=== PATIENT | male | born 1955 | race Caucasian/White ===

== ENCOUNTER 2016-06-27 20:45 | Observation (INO) | payer BC, OTHER, SELFPAY ==
[~2016-06-27] VITALS: Ht 182.9 cm; Wt 169.2 kg
[~2016-06-27 20:45] MED LIST: ALEV220C2 PO; IBUP800T23 PO; MIRA3350 PO; NICO21DI5 TD; PERC5TAB6 PO; SENO8.6T10 PO; ULTR50TA PO
[2016-06-27] MEDS ORDERED: MORPHINE 4 MG/ML 1ML SYRINGE As Ordered ONE ×2 (21:07→23:24)
[2016-06-27] MEDS ORDERED: ONDANSETRON 4MG/2ML VIAL (J2405) As Ordered ONE (21:07)
[2016-06-27 21:32] LABS: BASO % 0.4 % (0.0-1.0); EOS # 0.1 K/mm3 (0.0-0.50); EOS % 0.7 % (0.0-3.0); LARGE UNSTAINED CELL # 0.2 K/mm3 (0.0-0.4); LARGE UNSTAINED CELL % 1.4 % (0.0-4.0); LYMPH # 1.5 K/mm3 (1.5-4.5); LYMPH % 12.6 % (24.0-44.0); MEAN CORPUSCULAR HEMOGLOBIN 28.3 pg (27.0-33.0); MEAN CORPUSCULAR HGB CONC 33.2 g/dl (32.0-36.5); MEAN CORPUSCULAR VOLUME 85.4 fl (80.0-96.0); MONO # 0.6 K/mm3 (0.0-0.8); MONO % 5.1 % (0.0-5.0); NEUTROPHILS # 9.8 K/mm3 (1.8-7.7); NEUTROPHILS % 79.9 % (36.0-66.0); PLATELET COUNT, AUTOMATED 238 k/mm3 (150-450); RED CELL DISTRIBUTION WIDTH 12.8 % (11.5-14.5); WHITE BLOOD COUNT 12.2 K/mm3 (4.0-10.0)
[2016-06-27 21:41] LABS: ALBUMIN 3.6 GM/DL (3.2-5.2); ALBUMIN/GLOBULIN RATIO 1.38 (1.00-1.93); ALKALINE PHOSPHATASE 75 U/L (45-117); ALT/SGPT 22 U/L (12-78); ANION GAP 8 MEQ/L (8-16); AST/SGOT 11 U/L (15-37); BILIRUBIN,DIRECT 0.1 MG/DL (0.0-0.2); BILIRUBIN,TOTAL 0.4 MG/DL (0.2-1.0); BLOOD UREA NITROGEN 18 MG/DL (7-18); CALCIUM LEVEL 8.4 MG/DL (8.8-10.2); CARBON DIOXIDE LEVEL 29 MEQ/L (21-32); CHLORIDE LEVEL 105 MEQ/L (98-107); CREATININE FOR GFR 1.23 MG/DL (0.70-1.30); GLOMERULAR FILTRATION RATE > 60.0 (>49); GLUCOSE, FASTING 103 MG/DL (80-110); POTASSIUM SERUM 4.3 MEQ/L (3.5-5.1); SODIUM LEVEL 142 MEQ/L (136-145); TOTAL PROTEIN 6.2 GM/DL (6.4-8.2)
[2016-06-27] MEDS ORDERED: ISOVUE-370 76% 100ML VIAL (Q9967) As Ordered ONE (22:01)
--- NOTE | 2016-06-27 22:40 | REPUSA ---
CT of the right femur with contrast Clinical statement: Pain. Technique: Multiple axial CT images were obtained with 5 mm cuts through the right femur following ad ministration of nonionic intravenous contrast. Coronal and sagittal reconstructions were also obtaine d. No comparison is available. Findings: The osseous structures do not demonstrate any fractures or dislocations. There is a large m ix density loculated fluid collection in the anterior soft tissues in the distal upper leg and knee, measuring approximately 5.5 x 15.7 x 23 cm. Hyperdense material is seen within this lesion. Surroundi ng inflammatory stranding is seen in the anterior soft tissues. No discrete evidence of enhancement i s identified. The vascular structures demonstrate normal caliber and contour. There is a small joint effusion. Impression: 1. Large complex nonenhancing fluid collection in the anterior soft tissues just above the knee. This is most consistent with a large hematoma. Inflammatory stranding is noted surrounding this area, lik naif representing edema. 2. No abnormal enhancing mass lesions identified. 3. No acute fractures.
--- NOTE | 2016-06-28 01:57 | REP ---
Clinical: Trauma. Technique: AP and frog lateral views of the right femur. Findings: Degenerative changes at the hip and knee joint noted. No acute fracture or dislocation. Soft tissues grossly unremarkable. Surgical clips along the medial five likely related to prior vascular surgery. Impression: Degenerative changes. No acute fracture or dislocation. Signed by Perry Wallace MD 06/28/2016 01:48 A
--- NOTE | 2016-06-28 01:58 | REP ---
Clinical: Trauma. Technique: Single AP view of the pelvis. Findings: Age-related degenerative changes include enthesopathy along the iliac wings as well as increase sclerosis and joint space narrowing of the bilateral hips with subtle spurring. No acute fracture dislocation. Impression: Age-related degenerative changes. No acute fracture or dislocation. Signed by Perry Wallace MD 06/28/2016 01:49 A
--- NOTE | 2016-06-28 02:01 | REP ---
Clinical: Trauma . Comparison: 12/24/2015 . Findings: The mediastinum and cardiac silhouette are stable and within normal limits for portable technique; postsurgical changes appreciated. The lung alt[place]irano are clear without acute consolidation, effusion, or pneumothorax. Skeletal structures are intact. Impression: No acute cardiopulmonary process. No evidence for trauma. Signed by Perry Wallace MD 06/28/2016 01:52 A
--- NOTE | 2016-06-28 02:02 | REP ---
Clinical: Trauma. Technique: AP and lateral views of the right tibia / fibula. Findings: Tricompartmental degenerative changes at the knee include spurring/osteophytosis, cortical irregularity, increased sclerosis to the tibial surface and associated joint space narrowing. Clips along the medial calf consistent with vascular surgery. No acute fracture or dislocation. Impression: No fracture or dislocation Signed by Perry Wallace MD 06/28/2016 01:53 A
--- NOTE | 2016-06-28 02:03 | EDDOCDS ---
Physician Documentation [facility] Name: Marcello Chilel Age: 61 yrs Sex: Male : 1955 Arrival Date: 06/27/2016 Time: 20:45 Bed 3 Private MD: Kylah Klein Disposition: 06/28/16 01:04 Hospitalization ordered by Major Jama for Inpatient Admission. Preliminary diagnosis is Crushing injury of hip and thigh. - Bed requested for 4 Elizabeth. - Status is Inpatient Admission. tm5 - Condition is Stable. - Problem is an acute exacerbation. - Symptoms have improved. Historical: - Allergies: no known allergies; - Home Meds: 1. aspirin 81 mg Oral TbEC 1 tab once daily 2. atorvastatin 40 mg oral tab 1 tab once daily 3. ramipril 2.5 mg Oral cap 1 cap once daily 4. metoprolol succinate 25 mg Tb24 1 tab once daily - PMHx: High Cholesterol; Hypertension; CA; - PSHx: triple bypass; sternotomy wires removed; carotid artery surgery and replacement with bovine vein?; R CEA with bovine prostetic; - Immunization history: Last tetanus immunization: unknown. - Family history: Not pertinent. - Social history: Smoking status: Patient uses tobacco products, current every day smoker. No barriers to communication noted, The patient speaks fluent Upper Sor[place]. - Last oral intake was: 11.30 am. - : The pt / caregiver states he / she is not on anticoagulants. Home medication list is obtained from the patient. Vital Signs: 06/27 20:57 BP 120 / 67; Pulse 74; Resp 20; Temp 97.4(TE); Pulse Ox 96% ; Weight 169.2 kg / 373.02 rs3 lbs; Height 5 ft. 8 in. (172.72 cm); Pain 6/10; 20:58 BP 120 / 67 (auto/); rs3 21:00 BP 115 / 69 (auto/); rs3 21:02 Pulse Ox 96% ; rs3 21:15 BP 100 / 55 (auto/); rs3 21:17 Pulse 63 MON; Pulse Ox 94% ; rs3 21:41 BP 85 / 40 (auto/); rs3 21:44 BP 90 / 54 (auto/); rs3 21:53 Pulse 48 MON; Pulse Ox 93% ; rs3 21:56 BP 85 / 42 (auto/); rs3 22:00 Pulse 53 MON; Pulse Ox 96% ; rs3 22:11 BP 99 / 53 (auto/); rs3 22:24 Pulse 52 MON; Pulse Ox 96% ; rs3 22:24 BP 90 / 53; Pulse 48; Resp 18; Pulse Ox 99% on R/A; Pain 3/10; rs3 22:41 BP 91 / 52 (auto/); tm5 22:41 Pulse 52 MON; Pulse Ox 95% ; tm5 22:56 BP 100 / 58 (auto/); tm5 22:56 Pulse 51 MON; Pulse Ox 96% ; tm5 23:14 BP 117 / 76 (auto/); tm5 23:14 Pulse 50 MON; Pulse Ox 94% on R/A; tm5 23:56 BP 127 / 57 (auto/); tm5 23:56 Pulse 52 MON; Pulse Ox 96% ; tm5 06/28 00:11 BP 116 / 64 (auto/); tm5 00:11 Pulse 51 MON; Resp 18; Pulse Ox 96% on R/A; Pain 4/10; tm5 00:26 BP 109 / 59 (auto/); tm5 00:26 Pulse 51 MON; Resp 16; Pulse Ox 96% on R/A; Pain 2/10; tm5 00:41 BP 116 / 65 (auto/); tm5 00:41 Pulse 54 MON; tm5 00:56 BP 109 / 59 (auto/); tm5 00:56 Pulse 52 MON; tm5 01:11 BP 108 / 58 (auto/); tm5 01:11 Pulse 47 MON; tm5 01:26 BP 115 / 67 (auto/); tm5 01:26 Pulse 49 MON; Resp 16; Temp 98.2(O); Pulse Ox 96% on R/A; Pain 4/10; tm5 06/27 20:57 Body Mass Index 56.72 (169.20 kg, 172.72 cm) rs3 Trauma Score (Adult): 06/27 20:57 Eye Response: spontaneous(1); Verbal Response: oriented(1); Motor Response: obeys rs3 commands(2); Systolic BP: > 89 mm Hg(4); Respiratory Rate: 10 to 29 per min(4); Shahida Score: 15; Trauma Score: 12 MDM: 21:01 Stone Carriage Operator/Pulse Ox/q 15 min VS ordered. mm11 21:01 IV Saline Lock ordered. mm11 21:01 Rhythm Strip to chart ordered. mm11 21:01 Trauma Level 2 Designation ordered. mm11 21:01 Vascular checks q1h, notify provider if change in condition ordered. mm11 21:01 NS 0.9% 1000 ml IV at 150 mL/hr continuous ordered. mm11 21:02 Basic Metabolic Profile Ordered. EDMS 21:02 CBC with Diff Ordered. EDMS 21:02 Liver Profile Ordered. EDMS 21:02 Type and Cross, Packed Cells Ordered. EDMS 21:02 Chest, 1 View Ordered. EDMS 21:03 TYPE & SCREEN Ordered. EDMS 21:04 Pelvis Ordered. EDMS 21:04 Femur Ordered. EDMS 21:04 Tibia/Fibula Ordered. EDMS 21:04 ECG WITH READING ER PHYS+CARDIAG ordered. EDMS 21:04 morphine 4 mg IVP every 30 minutes; Document pain score/vitals after each dose (Hold if mm11 SBP < 90mmHg) x2 ordered. 21:06 Ondansetron 4 mg IVP once ordered. mm11 21:40 CBC with Diff Reviewed. mm11 21:40 TYPE & SCREEN Reviewed. mm11 21:44 NS 0.9% 1000 ml IV at bolus once ordered. mm11 21:47 Basic Metabolic Profile Reviewed. mm11 21:47 Liver Profile Reviewed. mm11 23:55 Admission Orders was scanned into [employer] and attached to record. [facility] 06/28 00:15 [facility] Payment Agreement was scanned into [employer] and attached to record. [facility] 00:15 Financial registration complete. [facility] 00:56 TYPE & SCREEN Reviewed. mm11 01:57 COMPLETE BLOOD COUNT Ordered. EDMS 01:57 BASIC METABOLIC PROFILE Ordered. EDMS 01:57 CREATINE PHOSPHOKINASE Ordered. EDMS 01:58 THYROID STIMULATING HORMONE Ordered. EDMS 01:58 MAGNESIUM LEVEL Ordered. EDMS 01:58 PT & APTT Ordered. EDMS Administered Medications: 06/27 21:18 Drug: NS 0.9% 1000 ml [sodium chloride 0.9 % intravenous solution] Route: IV; Rate: 150 rs3 mL/hr; Site: right antecubital; 21:18 Drug: morphine 4 mg [morphine 4 mg/mL intravenous cartridge (1 mL)] Route: IVP; Site: rs3 right antecubital; 22:24 Follow up: BP 90 / 53; Pulse 48 bpm; Resp 18 bpm; Pulse Ox 99% RA; Pain 3/10 Adult rs3 21:18 Drug: Ondansetron 4 mg [ondansetron HCl 2 mg/mL intravenous solution (2 mL)] Route: rs3 IVP; Site: right antecubital; 23:31 Follow up: Response: Nausea is resolved; No Adverse Reaction tm5 22:07 Drug: NS 0.9% 1000 ml [sodium chloride 0.9 % intravenous solution] Route: IV; Rate: sls1 bolus; Site: right antecubital; 23:23 Follow up: IV Status: Completed infusion; IV Intake: 1000ml tm5 23:31 Drug: morphine 4 mg [morphine 4 mg/mL intravenous cartridge (1 mL)] Route: IVP; Site: tm5 right antecubital; 06/28 00:00 Follow up: Response: No Adverse Reaction; Pain is decreased tm5 Signatures: Dispatcher [employer] EDMS Shin MONTES, Nadege, RN RN Carl Hannah DO DO mm11 Lani Gill RN RN rs3 McLear, Criss, ACTIVITIES COUNSELOR ACTIVITIES COUNSELOR tmm1 Janett Bowles Luz Valenzuela RN RN tm5 Abi Light RN sls1 The chart was reviewed and I authenticate all verbal orders and agree with the evaluation and treatment provided.Corrections: (The following items were deleted from the chart) 06/27 22:01 21:53 CT-Femur WITHOUT CONTRAST ordered. EDMS EDMS Attachments: 23:55 Admission Orders tmm1 06/28 00:15 [facility] [place] [facility] MTDD
--- NOTE | 2016-06-28 02:04 | EDDOCDS ---
Nurse's Notes [facility] Name: Marcello Chilel Age: 61 yrs Sex: Male : 1955 Arrival Date: 06/27/2016 Time: 20:45 Bed 3 Private MD: Kylah Klein Diagnosis: Crushing injury of hip and thigh Presentation: 06/27 20:47 Presenting complaint: EMS states: Had truck maribel \R\ 1000 ibs weight fell on his right rs3 thigh around 3.30 pm this evening. patient drove to [place] when he got out of the truck had syncopal episode an hour ago. he was conscious upon EMS arrival. BP 78/ 48. Method of arrival: Ambulance: direct to room. Care prior to arrival: Medications administered prior to arrival: Saline lock initiated. right leg Traction applied. Mechanism of Injury: Crush injury from TRuck maribel. Trauma event details: Loss of Consciousness: No. Injury occurred on a street or highway. Injury occurred June 27, 2016 Injury occurred at 20:00. 20:47 Acuity: FANI Level 2 rs3 06/28 01:31 Adult Sepsis Screening: The patient does not have new or worsening altered mentation. tm5 Patient's respiratory rate is less than 22. Systolic blood pressure is greater than 100. Patient has a qSOFA score of 0- Negative Sepsis Screen. Suicide/Homicide risk assessment- the patient denies having any suicidal and/or homicidal ideations and does not present with any other emotional, behavioral or mental health complaints. 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 Transition of care: patient was not received from another setting of care. Triage Assessment: 01:31 Pt Declines HIV testing. tm5 Historical: - Allergies: no known allergies; - Home Meds: 1. aspirin 81 mg Oral TbEC 1 tab once daily 2. atorvastatin 40 mg oral tab 1 tab once daily 3. ramipril 2.5 mg Oral cap 1 cap once daily 4. metoprolol succinate 25 mg Tb24 1 tab once daily - PMHx: High Cholesterol; Hypertension; LA; - PSHx: triple bypass; sternotomy wires removed; carotid artery surgery and replacement with bovine vein?; R CEA with bovine prostetic; - Immunization history: Last tetanus immunization: unknown. - Family history: Not pertinent. - Social history: Smoking status: Patient uses tobacco products, current every day smoker. No barriers to communication noted, The patient speaks fluent Hebrew. - Last oral intake was: 11.30 am. - : The pt / caregiver states he / she is not on anticoagulants. Home medication list is obtained from the patient. Screenin/19 21:01 Primary language is Hebrew. Fall risk: No risks identified. Assistance ADL's: requires rs3 no assistance with activities of daily living. Abuse/DV Screen: The patient / caregiver reports he/she is: not in a situation that causes fear, pain or injury. Nutritional screening: No deficits noted. Exposure Risk Screening: None identified. Advance Directives: Currently, there is no health care proxy. There is no active DNR order. home support is adequate. 06/28 01:26 Screening information is obtained from the patient. tm5 Assessment: 06/27 21:22 General: Appears uncomfortable, Behavior is appropriate for age, cooperative. Pain: rs3 Location: right quadriceps. Neurological: Level of Consciousness is awake, alert, Oriented to person, place, time. Cardiovascular: Capillary refill < 3 seconds Clubbing of nail beds is absent. Respiratory: Airway is patent Respiratory effort is even, unlabored. Derm: pedal pulses +2 Swollen area noted on right quadriceps. Musculoskeletal: Circulation, motion, and sensation intact Capillary refill < 3 seconds No deformity noted Swelling present in right quadriceps Signs and Symptoms of Compartment Syndrome: no signs of compartment syndrome. 22:26 General: Appears in no apparent distress, reports of pain level improved 5/10. returned rs3 from CT. tolerated procedure well. denies of chest pain/distress. . Derm: right pedal pulse non-palpable. absent Doppler. weak dorsalis pedis R foot. L foot strong pedal pulse +. Musculoskeletal: Circulation, motion, and sensation intact Capillary refill is > 3 seconds. 23:32 Reassessment: Patient appears in no apparent distress at this time. Patient states tm5 feeling better. Patient states symptoms have improved. Cardiovascular: right pedal pulse non-palpable, pt states that his right leg was used for vein removal for his by-pass surgery so he normally has weak pedal pulses in right foot any ways, was able to auscultate right pedal pulse with doppler, pulse weaker than left pedal pulse but is present Rhythm is sinus bradycardia No ectopy. 06/28 00:38 Reassessment: Patient appears in no apparent distress at this time. Patient states tm5 feeling better. Patient states symptoms have improved. Neurological: Level of Consciousness is awake, alert, Oriented to person, place, time. Cardiovascular: Rhythm is sinus bradycardia. Cardiovascular: auscultated right pedal pulse with doppler again, remains weak but present. Respiratory: Airway is patent Respiratory effort is even, unlabored. 01:32 EENT: No deficits noted. Cardiovascular: Rhythm is sinus bradycardia. GI: No deficits tm5 noted. : No deficits noted. Injury Description: Bruise sustained to right thigh. 01:34 Neurological: Pupils are PERRLA. tm5 01:43 General: SBAR was received by 4 PAV. tm5 01:51 General: 4 PAV ready for pt's admission to the floor, awaiting Hospitalist to complete tm5 pt's chart . 01:52 Reassessment: Critical care time stopped, patient has stabilized. Patient states tm5 feeling better. Patient states symptoms have improved. pt resting quietly on stretcher with eyes closed, resp easy, no s/s of any distress. Vital Signs: 06/27 20:57 BP 120 / 67; Pulse 74; Resp 20; Temp 97.4(TE); Pulse Ox 96% ; Weight 169.2 kg; Height 5 rs3 ft. 8 in. (172.72 cm); Pain 6/10; 20:58 BP 120 / 67 (auto/); rs3 21:00 BP 115 / 69 (auto/); rs3 21:02 Pulse Ox 96% ; rs3 21:15 BP 100 / 55 (auto/); rs3 21:17 Pulse 63 MON; Pulse Ox 94% ; rs3 21:41 BP 85 / 40 (auto/); rs3 21:44 BP 90 / 54 (auto/); rs3 21:53 Pulse 48 MON; Pulse Ox 93% ; rs3 21:56 BP 85 / 42 (auto/); rs3 22:00 Pulse 53 MON; Pulse Ox 96% ; rs3 22:11 BP 99 / 53 (auto/); rs3 22:24 Pulse 52 MON; Pulse Ox 96% ; rs3 22:24 BP 90 / 53; Pulse 48; Resp 18; Pulse Ox 99% on R/A; Pain 3/10; rs3 22:41 BP 91 / 52 (auto/); tm5 22:41 Pulse 52 MON; Pulse Ox 95% ; tm5 22:56 BP 100 / 58 (auto/); tm5 22:56 Pulse 51 MON; Pulse Ox 96% ; tm5 23:14 BP 117 / 76 (auto/); tm5 23:14 Pulse 50 MON; Pulse Ox 94% on R/A; tm5 23:56 BP 127 / 57 (auto/); tm5 23:56 Pulse 52 MON; Pulse Ox 96% ; tm5 06/28 00:11 BP 116 / 64 (auto/); tm5 00:11 Pulse 51 MON; Resp 18; Pulse Ox 96% on R/A; Pain 4/10; tm5 00:26 BP 109 / 59 (auto/); tm5 00:26 Pulse 51 MON; Resp 16; Pulse Ox 96% on R/A; Pain 2/10; tm5 00:41 BP 116 / 65 (auto/); tm5 00:41 Pulse 54 MON; tm5 00:56 BP 109 / 59 (auto/); tm5 00:56 Pulse 52 MON; tm5 01:11 BP 108 / 58 (auto/); tm5 01:11 Pulse 47 MON; tm5 01:26 BP 115 / 67 (auto/); tm5 01:26 Pulse 49 MON; Resp 16; Temp 98.2(O); Pulse Ox 96% on R/A; Pain 4/10; tm5 06/27 20:57 Body Mass Index 56.72 (169.20 kg, 172.72 cm) rs3 Vitals: 06/27 20:57 Trauma Level: One. rs3 06/28 01:31 Log In Time N/A - ambulance arrival. tm5 Trauma Score (Adult): 06/27 20:57 Eye Response: spontaneous(1); Verbal Response: oriented(1); Motor Response: obeys rs3 commands(2); Systolic BP: > 89 mm Hg(4); Respiratory Rate: 10 to 29 per min(4); [place] Score: 15; Trauma Score: 12 ED Course: 20:46 Patient visited by Criss Méndez PCA. tmm1 20:46 Patient moved to Waiting tmm1 20:47 Kylah Klein is Private Physician. tmm1 20:47 Soosairaj,Lani,RN is Primary Nurse. tmm1 20:47 Patient moved to 3 tmm1 20:52 Carl Snyder DO is Attending Physician. mm11 20:53 Patient visited by Carl Snyder DO. mm11 20:54 Triage Initiated rs3 20:59 Patient visited by Carl Snyder DO. mm11 21:05 TYPE & SCREEN Sent. sls1 21:05 Basic Metabolic Profile Sent. sls1 21:05 CBC with Diff Sent. sls1 21:05 Liver Profile Sent. sls1 21:05 Type and Cross, Packed Cells Sent. sls1 21:22 Patient visited by Braxton Sheppard PCA. jmv 21:22 EKG done. (by ED staff). Reviewed by Carl Snyder DO. jmv 22:23 Patient visited by Lani Gill RN. rs3 23:22 Patient visited by Luz Valenzuela,MAHNAZ. tm5 23:55 Admission Orders was scanned into [employer] and attached to record. tmm1 06/28 00:15 [facility] Payment Agreement was scanned into [employer] and attached to record. h 00:38 Patient visited by Luz Valenzuela RN. tm5 01:04 Major Jama is Hospitalizing Provider. mm11 01:26 Awaiting bed assignment. tm5 01:26 The patient / caregiver is instructed regarding the plan of care and ED course. Cardiac tm5 monitor on. Pulse ox on. NIBP on. 01:26 Inserted saline lock: 20 gauge in right antecubital area this RN is documenting noted tm5 IV saline lock to Right AC that off going RN did not document. No procedures done that require assistance. 01:28 Patient visited by Luz Valenzuela RN. tm5 01:43 Patient visited by Luz Valenzuela RN. tm5 01:57 Femur Returned. EDMS Administered Medications: 06/27 21:18 Drug: NS 0.9% 1000 ml [sodium chloride 0.9 % intravenous solution] Route: IV; Rate: 150 rs3 mL/hr; Site: right antecubital; 21:18 Drug: morphine 4 mg [morphine 4 mg/mL intravenous cartridge (1 mL)] Route: IVP; Site: rs3 right antecubital; 22:24 Follow up: BP 90 / 53; Pulse 48 bpm; Resp 18 bpm; Pulse Ox 99% RA; Pain 3/10 Adult rs3 21:18 Drug: Ondansetron 4 mg [ondansetron HCl 2 mg/mL intravenous solution (2 mL)] Route: rs3 IVP; Site: right antecubital; 23:31 Follow up: Response: Nausea is resolved; No Adverse Reaction tm5 22:07 Drug: NS 0.9% 1000 ml [sodium chloride 0.9 % intravenous solution] Route: IV; Rate: sls1 bolus; Site: right antecubital; 23:23 Follow up: IV Status: Completed infusion; IV Intake: 1000ml tm5 23:31 Drug: morphine 4 mg [morphine 4 mg/mL intravenous cartridge (1 mL)] Route: IVP; Site: tm5 right antecubital; 06/28 00:00 Follow up: Response: No Adverse Reaction; Pain is decreased tm5 Intake: 06/27 20:57 PO: 0.00ml; Total: 0.00ml. rs3 23:23 IV: 1000.00ml; Total: 1000.00ml. tm5 Output: 20:57 Urine: 0.00ml; Total: 0.00ml. rs3 Order Results: Lab Order: Basic Metabolic Profile; SPEC'M 06/27/16 21:04 Test: GLUCOSE, FASTING; Value: 103; Range: 80-110; Units: MG/DL; Status: F Test: BLOOD UREA NITROGEN; Value: 18; Range: 7-18; Units: MG/DL; Status: F Test: CREATININE FOR GFR; Value: 1.23; Range: 0.70-1.30; Units: MG/DL; Status: F Test: GLOMERULAR FILTRATION RATE; Value: > 60.0; Range: >49; Status: F Test: SODIUM LEVEL; Value: 142; Range: 136-145; Units: MEQ/L; Status: F Test: POTASSIUM SERUM; Value: 4.3; Range: 3.5-5.1; Units: MEQ/L; Status: F Test: CHLORIDE LEVEL; Value: 105; Range: 98-107; Units: MEQ/L; Status: F Test: CARBON DIOXIDE LEVEL; Value: 29; Range: 21-32; Units: MEQ/L; Status: F Test: ANION GAP; Value: 8; Range: 8-16; Units: MEQ/L; Status: F Test: CALCIUM LEVEL; Value: 8.4; Range: 8.8-10.2; Abnormal: Below low normal; Units: MG/DL; Status: F Test Note: ; Units are mL/min/1.73 m2 Chronic Kidney Disease Staging per NKF: Stage I & II GFR >=60 Normal to Mildly Decreased Stage III GFR 30-59 Moderately Decreased Stage IV GFR 15-29 Severely Decreased Stage V GFR <15 Very Little GFR Left ESRD GFR <15 on PORTFOLIO MGR Lab Order: CBC with Diff; SPEC'M 06/27/16 21:04 Test: WHITE BLOOD COUNT; Value: 12.2; Range: 4.0-10.0; Abnormal: Above high normal; Units: K/mm3; Status: F Test: RED BLOOD COUNT; Value: 5.16; Range: 4.30-6.10; Units: M/mm3; Status: F Test: HEMOGLOBIN; Value: 14.6; Range: 14.0-18.0; Units: g/dl; Status: F Test: HEMATOCRIT; Value: 44.1; Range: 42.0-52.0; Units: %; Status: F Test: MEAN CORPUSCULAR VOLUME; Value: 85.4; Range: 80.0-96.0; Units: fl; Status: F Test: MEAN CORPUSCULAR HEMOGLOBIN; Value: 28.3; Range: 27.0-33.0; Units: pg; Status: F Test: MEAN CORPUSCULAR HGB CONC; Value: 33.2; Range: 32.0-36.5; Units: g/dl; Status: F Test: RED CELL DISTRIBUTION WIDTH; Value: 12.8; Range: 11.5-14.5; Units: %; Status: F Test: PLATELET COUNT, AUTOMATED; Value: 238; Range: 150-450; Units: k/mm3; Status: F Test: NEUTROPHILS %; Value: 79.9; Range: 36.0-66.0; Abnormal: Above high normal; Units: %; Status: F Test: LYMPH %; Value: 12.6; Range: 24.0-44.0; Abnormal: Below low normal; Units: %; Status: F Test: MONO %; Value: 5.1; Range: 0.0-5.0; Abnormal: Above high normal; Units: %; Status: F Test: EOS %; Value: 0.7; Range: 0.0-3.0; Units: %; Status: F Test: BASO %; Value: 0.4; Range: 0.0-1.0; Units: %; Status: F Test: LARGE UNSTAINED CELL %; Value: 1.4; Range: 0.0-4.0; Units: %; Status: F Test: NEUTROPHILS #; Value: 9.8; Range: 1.8-7.7; Abnormal: Above high normal; Units: K/mm3; Status: F Test: LYMPH #; Value: 1.5; Range: 1.5-4.5; Units: K/mm3; Status: F Test: MONO #; Value: 0.6; Range: 0.0-0.8; Units: K/mm3; Status: F Test: EOS #; Value: 0.1; Range: 0.0-0.50; Units: K/mm3; Status: F Test: BASO #; Value: 0.0; Range: 0.0-0.2; Units: K/mm3; Status: F Test: LARGE UNSTAINED CELL #; Value: 0.2; Range: 0.0-0.4; Units: K/mm3; Status: F Lab Order: Liver Profile; SPEC'M 06/27/16 21:04 Test: AST/SGOT; Value: 11; Range: 15-37; Abnormal: Below low normal; Units: U/L; Status: F Test: ALT/SGPT; Value: 22; Range: 12-78; Units: U/L; Status: F Test: ALKALINE PHOSPHATASE; Value: 75; Range: 45-117; Units: U/L; Status: F Test: BILIRUBIN,TOTAL; Value: 0.4; Range: 0.2-1.0; Units: MG/DL; Status: F Test: BILIRUBIN,DIRECT; Value: 0.1; Range: 0.0-0.2; Units: MG/DL; Status: F Test: TOTAL PROTEIN; Value: 6.2; Range: 6.4-8.2; Abnormal: Below low normal; Units: GM/DL; Status: F Test: ALBUMIN; Value: 3.6; Range: 3.2-5.2; Units: GM/DL; Status: F Test: ALBUMIN/GLOBULIN RATIO; Value: 1.38; Range: 1.00-1.93; Status: F Lab Order: TYPE & SCREEN; SPEC'M 06/27/16 21:04 Test: BLOOD TYPE; Value: A POS; Status: F Test: AB SCREEN (INDIRECT DEMAR)GEL; Value: NEGATIVE; Status: F Test: IMMEDIATE SPIN CROSSMATCH; Value: [id number] A NEGATIVE Compatible? Y; Status: F Test: IMMEDIATE SPIN CROSSMATCH; Value: [id number] A POSITIVE Compatible? Y; Status: F Radiology Order: Femur Test: Femur REASON FOR EXAMINATION: Trauma; Clinical: Trauma.; ; Technique: AP and frog lateral views of the right femur.; ; Findings:; Degenerative changes at the hip and knee joint noted. No acute fracture or; dislocation. Soft tissues grossly unremarkable. Surgical clips along the medial; five likely related to prior vascular surgery.; ; Impression:; Degenerative changes. No acute fracture or dislocation.; ; ; Signed by; Perry Wallace MD 06/28/2016 01:48 A; Outcome: 06/28 01:04 Decision to Hospitalize by Provider. mm11 01:33 Discharge Assessment: Patient awake, alert and oriented x 3. No cognitive and/or tm5 functional deficits noted. Patient verbalized understanding of disposition instructions. patient administered narcotics - yes. Patient was admitted to the hospital or transferred to another facility. The following High Risk Discharge criteria are identified: None. Admitted to Med/Surg accompanied by tech, via stretcher, with chart. Condition: good Condition: stable Condition: improved. CT Study completed. Property :Personal belongings accompany Pt. 02:02 Patient left the ED. tm5 Signatures: Dispatcher [employer] EDCarl Raman DO DO mm11 Lani Gill RN RN rs3 Abi Light RN RN sls1 Criss Méndez, INTERVENTIONAL PHYSICIAN INTERVENTIONAL PHYSICIAN tmm1 Janett Bowles Jose, INTERVENTIONAL PHYSICIAN INTERVENTIONAL PHYSICIAN v Luz Valenzuela,MAHNAZ RN tm5 MTDD
[2016-06-28 02:05] VITALS: BP 140/76
[2016-06-28] MEDS ORDERED: METO25TA74 PO (02:16)
[2016-06-28] MEDS ORDERED: ATOR40TA PO (02:16)
[2016-06-28] MEDS ORDERED: ASPI325T PO (02:16)
--- NOTE | 2016-06-28 05:32 | CR ---
DATE OF CONSULTATION: 06/27/2016 This is a patient of [facility]. Corporate Paralegal: Dr. Farias Chief complaint is "I hurt my leg." SUMMARY OF PRESENTATION: This is a 61-year-old who was hooking up a tractor trailer tandem rig and the maribel that holds the trailing trailer fell upon his right leg. Estimated about 1000 pounds fell on his thigh at 3:30 p.m. this evening. He passed out. Apparently not long after, blood pressure was low. Emergency Medical Services (EMS) brought him to the hospital. He was seen by Dr. Jama, who has admitted him to the hospital and has asked for a medical consultation. Currently, the patient is feeling okay. His pain is controlled. He had no chest pain. No shortness of breath. He did have a coronary artery bypass and right-sided CEA done in December of 2014. Since that time, he has lost weight mainly by eating better, does not suffer from chest pain, has been trying to be more active. Mainly gets activity through work and caring for his two horses at home. Past medical history notable for hypercholesterolemia, hypertension, coronary artery disease. There is suggestion in the previous medical records that he has obstructive sleep apnea but the patient denies this. Past surgical history is notable for a triple bypass and later went on to have sternotomy wires removed as they were bothering him. He has a right-sided CEA done in December of 2014. Family history is noted for a mother who is 89, alive and well, dad who at age 42 with stomach cancer. Socially, he continues to smoke tobacco. 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 He lives in [place]. ALLERGIES: NO KNOWN DRUG ALLERGIES. He does have an allergy to BEE VENOM. Medications at home are listed as: - aspirin 81 mg daily - atorvastatin 40 mg daily - ramipril 2.5 mg daily - metoprolol succinate 25 mg by mouth daily Review of systems notable for no headache, no visual changes, no runny nose, no sore throat. No chest pain. No shortness of breath. No cough. No abdominal pain. No change in bowel or bladder habits. Otherwise, unremarkable. On physical exam, blood pressure is 117/76, pulse 50, respiratory rate 18, temperature 97.4, pulse oximetry 96% on room air. Weighs 169.2 kg with a body mass index of 56.72. My assessment is as follows: This is a 61-year-old who has suffered a traumatic crush injury to his right lower extremity and went on to have a syncopal event most likely related to the injury and perhaps blood loss into the hematoma on his thigh. Plan will be as follows: 1. Patient has a crush injury and is at risk for rhabdomyolysis. There is intravenous (IV) fluid ordered for a total of 3 liters, which is likely reasonable in the setting and possibility of need for transfusion is considered. Patient will be consented for transfusion as deemed necessary by the orthopedic surgeon. Patient is planned to go (dictation cut off) and so is currently nothing by mouth except for sips with medications. 2. Cardiovascular. Patient has coronary artery disease status post bypass. Optimized for surgery at this point. Surgery would be relatively urgent and he has adequate exercise tolerance with no angina or anginal equivalence. We will hold his angiotensin -converting enzyme (SAMRA) inhibitor at this time in the setting of developing in the setting of rhabdomyolysis and post injury and postoperative volume shifts. We will continue his beta blockade with hold parameters, at this point, he is relatively bradycardic but apparently his heart rate at baseline is low. We will withhold his aspirin in the setting as well. 3. Patient has hypercholesterolemia. Continue his statin drug. 4. Deep venous thrombosis (DVT) prophylaxis per the primary team.
[2016-06-28 05:48] LABS: MEAN CORPUSCULAR HEMOGLOBIN 29.1 pg (27.0-33.0); MEAN CORPUSCULAR HGB CONC 33.9 g/dl (32.0-36.5); RED CELL DISTRIBUTION WIDTH 13.1 % (11.5-14.5); WHITE BLOOD COUNT 9.3 K/mm3 (4.0-10.0)
[2016-06-28 05:54] LABS: INR 1.06
[2016-06-28 06:05] VITALS: BP 113/57
[2016-06-28 06:17] LABS: ANION GAP 7 MEQ/L (8-16); BLOOD UREA NITROGEN 16 MG/DL (7-18); CALCIUM LEVEL 7.9 MG/DL (8.8-10.2); CARBON DIOXIDE LEVEL 28 MEQ/L (21-32); CHLORIDE LEVEL 107 MEQ/L (98-107); CREATININE FOR GFR 0.97 MG/DL (0.70-1.30); GLOMERULAR FILTRATION RATE > 60.0 (>49); GLUCOSE, FASTING 99 MG/DL (80-110); POTASSIUM SERUM 4.4 MEQ/L (3.5-5.1); SODIUM LEVEL 142 MEQ/L (136-145)
[2016-06-28] MEDS: METOPROLOL SUCC *XL* 25MG TAB (TopROL *XL*) PO SCH (09:00)
--- NOTE | 2016-06-28 09:22 | CR ---
DATE OF CONSULTATION: 06/28/2016 This is a 61-year-old gentleman whose history is documented in the chart who was hit by a portion of a trailer I believe yesterday in his right thigh. The patient says that he continued to work after that. 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 He was admitted to the hospital. Dr. Jama saw him last night. He does have a history of a coronary artery bypass and a carotid endarterectomy done relatively recently. He is on aspirin as listed in the chart as a home medication in addition to atorvastatin, ramipril, and metoprolol succinate. There was some concern as to whether this needed to be evacuated on an urgent basis or decompressed. The CT scan had been obtained as well as femur x-rays. On exam, he was resting quite comfortably. He does have some discomfort if he tries to bend his knee more than about 70 or 80 degrees, but he has completely normal neurovascular function distally. He moves his foot and ankle normally. He can do a straight leg raise with no discomfort. He has mild tenderness over his anterior thigh where this hematoma and bruising is which extends from about the proximal 2/3 down to just above his knee. It actually feels to be fairly fluctuant and fluid-like at this point. There is absolutely no tenseness of the compartments at all. They are quite soft throughout his thigh in its complete circumference. There are no signs of compartment syndrome at this point in time. CT scan and x-rays are reviewed. There is no evidence of a fracture. The CT scan shows a very superficial hematoma just underneath the skin that involves his distal anterior thigh. At this point, I think we are dealing with a superficial hematoma in his thigh. I do not see any evidence of compartment syndrome and I do not see any evidence of urgent surgical involvement. I discussed this with the patient and he understands this. He understands that there is a risk of compartment syndrome and I described to him what that is all about and what the symptoms are and that he needs to let us know if he has developed any symptoms like that. Because there is some fluctuance to this fluid, I think it may be worth trying to just drain some of it out, which may reduce some of the risk of this becoming calcified down the road. So I think it is worth just doing an ultrasound guided aspiration and drain placement just to try to get some fluid out of this and maybe make him a little more comfortable, but again there is no tenseness to this anterior compartment or anywhere on his thigh and no signs of compartment syndrome. I do think the patient should have thromboembolic deterrent stockings (TEDS) and sequentials to prevent deep vein thrombosis (DVT). I assume the medical service is going to want to stay away from anticoagulation for right now and I would agree with that if possible from his cardiac and vascular standpoint. Will follow along for now. Thank you for the consult.
--- NOTE | 2016-06-28 11:18 | CR ---
DATE OF SERVICE: 06/28/2016 61-year-old male with past cardiac history and recent injury to his right thigh when he got pinned between a central joel and a trailer causing a large hematoma on his thigh. He was able to drive several hours after this incident until finally he had enough pain that he required calling 911. He was brought into the emergency department where he was diagnosed with a large right thigh hematoma on CT scan. On exam, he has swelling, tenderness to palpation. He is neurovascularly intact with regard to the L2-S1 nerve roots on the right side. His compartments are soft. His leg is well perfused and he has no other complaints. IMPRESSION: Large right anterior thigh hematoma. Recommendation from an orthopedic standpoint is irrigation and debridement as well as hospitalists medical management and OR clearance. We will make arrangements for that.
[2016-06-28] MEDS ORDERED: LIDOCAINE 1% MDV 20ML VIAL As Ordered ONE (13:31)
[2016-06-28 14:50] VITALS: BP 135/83
--- NOTE | 2016-06-28 17:27 | REP ---
ULTRASOUND GUIDED RIGHT THIGH HEMATOMA DRAINAGE: The procedure was performed under the direct supervision of Dr. Bacon. The patient has a history of a large complex nonenhancing fluid collection in the anterior soft-tissues just above the knee seen on a previous CAT scan dated 06/27/2016. The risks and benefits of the procedure were explained to the patient and informed consent was obtained. The right thigh hematoma was localized using ultrasound guidance. The skin was prepped and draped in a sterile fashion. 1% Xylocaine was used as a local anesthetic. Using ultrasound guidance an #8-Maori Skater APDL catheter was inserted using trocar technique. 10 mL of red fluid was withdrawn and sent to the lab. The catheter was affixed to the skin and a sterile dressing was applied. The catheter was connected to a gravity drainage bag. The patient tolerated the procedure well and there were no immediate complications. Reviewed by DENYS Almaraz 07/01/2016 05:06 PEdited and Signed by Mik Bacon MD 07/01/2016 05:12 P
[2016-06-28 19:55] VITALS: BP 129/59
[2016-06-28] MEDS: ATORVASTATIN 20 MG TAB PO SCH (19:57)
--- NOTE | 2016-06-28 21:33 | IPN ---
DATE: 06/28/2016 The patient was admitted overnight under orthopedic service. Status post trauma to the right thigh with hematoma. Denies any chest pain, pressure or discomfort. Denies any fevers or chills. Currently comfortable. VITAL SIGNS: Temperature 99.1, pulse 58, respirations 18, blood pressure 135/83, pulse oximetry 91% on room air. LABORATORY DATA: WBC 9.3, hemoglobin ad hematocrit 12.7/37.5, platelets 230. Chemistry: Sodium 142, potassium 4.4, chloride 107, bicarbonate 28, BUN 16, creatinine 0.97. Cardiac enzymes negative times one. TSH 1.7. PHYSICAL EXAMINATION: GENERAL: The patient is alert and oriented times three, in no acute distress. Obese. HEENT: Normocephalic, atraumatic. PULMONARY: Bilaterally clear to auscultation. CARDIAC: Regular rate and rhythm. Normal S1, S2. ABDOMEN: Soft, obese, nontender, nondistended. EXTREMITIES: Large right thigh, flexor surface, large hematoma with peripheral bruising, superficial, nontense, soft on the right thigh. Dorsalis pedis and posterior tibialis pulses bilaterally 2+. Able to move bilateral lower extremities. 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 Farias for cardiology, dyslipidemia, coronary arterial disease, obesity, patient was hooking up his tandem trailer when one of the maribel, that is estimated about 1000 pounds fell on his thigh around 3:30 p.m. yesterday. The patient developed a hematoma. Subsequently presented to the hospital. 1. Crushing injury on the patient's right thigh. The patient is admitted to orthopedic surgery service. Medicine was consulted for medical management. The patient with risk of adenolysis. IV fluids for hydration. Followup CK. Followup kidney function. Pain regimen as per orthopedic surgery. 2. Deep vein thrombosis (DVT) prophylaxis given the presence of hematoma, as per orthopedic surgery, put the patient on sequential compression device (SCD) for now. The patient, at baseline, able to ambulate with METs greater than 4. Coronary artery bypass graft (CABG) was one and a half years ago. Patient is intermediate risk for intermediate risk surgery, currently optimized. Continue beta blockers. As per orthopedic surgery, the patient does not need any surgery, going for interventional radiology guided aspiration of the hematoma. 2. Coronary arterial disease. Holding aspirin given hematoma for now. Resume after discussion with orthopedics. Continue statin and metoprolol. Dr. Farias has been informed. 3. Obesity complicating care. 4. Smoking. Counseling provided. Refused nicotine patch. 5. Dyslipidemia. Continue statin. 6. Deep vein thrombosis (DVT) prophylaxis. Discussed with orthopedics. Currently on sequential compression device (SCD). DISPOSITION: Pending primary team.
[2016-06-29 06:57] LABS: MEAN CORPUSCULAR HEMOGLOBIN 27.7 pg (27.0-33.0); MEAN CORPUSCULAR HGB CONC 31.8 g/dl (32.0-36.5); MEAN CORPUSCULAR VOLUME 87.2 fl (80.0-96.0); RED CELL DISTRIBUTION WIDTH 13.7 % (11.5-14.5); WHITE BLOOD COUNT 8.6 K/mm3 (4.0-10.0)
[2016-06-29 07:05] LABS: ANION GAP 5 MEQ/L (8-16); BLOOD UREA NITROGEN 17 MG/DL (7-18); CALCIUM LEVEL 7.9 MG/DL (8.8-10.2); CARBON DIOXIDE LEVEL 31 MEQ/L (21-32); CHLORIDE LEVEL 105 MEQ/L (98-107); CREATININE FOR GFR 1.03 MG/DL (0.70-1.30); GLOMERULAR FILTRATION RATE > 60.0 (>49); GLUCOSE, FASTING 93 MG/DL (80-110); POTASSIUM SERUM 4.6 MEQ/L (3.5-5.1); SODIUM LEVEL 141 MEQ/L (136-145)
--- NOTE | 2016-06-29 08:01 | ECGEPIP ---
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
[2016-06-29] MEDS: MOM 30ML SUSPENSION UDC PO SCH (10:09)
[2016-06-29] MEDS: MIRALAX *UNIT DOSE* 17GM PACKET PO SCH (10:09)
[2016-06-29] MEDS: METOPROLOL SUCC *XL* 25MG TAB (TopROL *XL*) PO SCH (10:09)
[2016-06-29 10:22] VITALS: BP 127/69
[2016-06-29 14:00] VITALS: BP 150/72
--- NOTE | 2016-06-29 14:37 | IPN ---
DATE OF SERVICE: 06/29/2016 The patient seen and examined. No acute events overnight. Denies any fevers, chills, chest pain, pressure, discomfort. Denies any shortness of breath. VITAL SIGNS: Temperature 98.3, pulse 53, respirations 18, blood pressure 127/69, pulse oximetry 90% on room air. LABORATORY: WBC 8.6, hemoglobin and hematocrit 12.2/38.3, platelets 214. Chemistry: Sodium 141, potassium 4.6, chloride 105, bicarbonate 31, BUN 17, creatinine 1.03. PHYSICAL EXAMINATION: GENERAL: The patient obese, alert and oriented times three, in no acute distress. HEENT: Normocephalic, atraumatic. PULMONARY: Bilaterally clear to auscultation. CARDIAC: Regular rate and rhythm. Normal S1, S2. ABDOMEN: Soft, obese, nontender, positive bowel sounds. EXTREMITIES: Large right thigh, flexor surface, large hematoma with peripheral bruising and superficial tissues, nontense, soft. Dorsalis pedis and posterior tibialis pulses 2+ bilaterally. Able to move bilateral lower extremities. Dressing clean, dry, and intact. Drain in place. Minimal output. 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 Farias for cardiology, dyslipidemia, coronary arterial disease, obesity. The patient was hooking up his tandem trailer when a maribel estimated about 1000 pounds fell on his thigh. The patient developed a hematoma. Subsequently, he presented to the hospital. Admitted under orthopedic service. PROBLEMS: 1. Crush injury of the patient's right thigh. The patient is admitted to orthopedic surgery. Medicine consulted for medical management. Images appreciated. Intravenous (IV) hydration was initially given for concerns of possible rhabdo. CK were negative. Kidney function negative. Pain regimen as per orthopedics. Status post drainage of hematoma with minimal output. Physical therapy. Withholding aspirin for now. Further management as per orthopedics. 2. Coronary arterial disease. Holding aspirin for now given hematoma. Will resume after discharge. Continue statin, metoprolol. Dr. Farias has been informed. 3. Obesity, complicating care. 4. Smoking. Counseling provided. Refused nicotine patch. 5. Dyslipidemia. Continue statin. 6. Deep vein thrombosis (DVT) prophylaxis. Sequential compression device, given the patient has a hematoma. DISPOSITION PLANNING: Pending primary team, physical therapy.
[2016-06-29] MEDS: ATORVASTATIN 20 MG TAB PO SCH (20:12)
[2016-06-29 20:15] VITALS: BP 143/70
--- NOTE | 2016-06-30 03:03 | EDDOCDS ---
Physician Documentation [facility] Name: Marcello Chilel Age: 61 yrs Sex: Male : 1955 Arrival Date: 06/27/2016 Time: 20:45 Bed 3 Private MD: Kylah Klein Disposition: 06/28/16 01:04 Hospitalization ordered by Major Jama for Inpatient Admission. Preliminary diagnosis is Crushing injury of hip and thigh. - Bed requested for 4 [place]. - Status is Inpatient Admission. tm5 - Condition is Stable. - Problem is an acute exacerbation. - Symptoms have improved. Historical: - Allergies: no known allergies; - Home Meds: 1. aspirin 81 mg Oral TbEC 1 tab once daily 2. atorvastatin 40 mg oral tab 1 tab once daily 3. ramipril 2.5 mg Oral cap 1 cap once daily 4. metoprolol succinate 25 mg Tb24 1 tab once daily - PMHx: High Cholesterol; Hypertension; [place]; - PSHx: triple bypass; sternotomy wires removed; carotid artery surgery and replacement with bovine vein?; R CEA with bovine prostetic; - Immunization history: Last tetanus immunization: unknown. - Family history: Not pertinent. - Social history: Smoking status: Patient uses tobacco products, current every day smoker. No barriers to communication noted, The patient speaks fluent Swedish. - Last oral intake was: 11.30 am. - : The pt / caregiver states he / she is not on anticoagulants. Home medication list is obtained from the patient. Vital Signs: 06/27 20:57 BP 120 / 67; Pulse 74; Resp 20; Temp 97.4(TE); Pulse Ox 96% ; Weight 169.2 kg / 373.02 rs3 lbs; Height 5 ft. 8 in. (172.72 cm); Pain 6/10; 20:58 BP 120 / 67 (auto/); rs3 21:00 BP 115 / 69 (auto/); rs3 21:02 Pulse Ox 96% ; rs3 21:15 BP 100 / 55 (auto/); rs3 21:17 Pulse 63 MON; Pulse Ox 94% ; rs3 21:41 BP 85 / 40 (auto/); rs3 21:44 BP 90 / 54 (auto/); rs3 21:53 Pulse 48 MON; Pulse Ox 93% ; rs3 21:56 BP 85 / 42 (auto/); rs3 22:00 Pulse 53 MON; Pulse Ox 96% ; rs3 22:11 BP 99 / 53 (auto/); rs3 22:24 Pulse 52 MON; Pulse Ox 96% ; rs3 22:24 BP 90 / 53; Pulse 48; Resp 18; Pulse Ox 99% on R/A; Pain 3/10; rs3 22:41 BP 91 / 52 (auto/); tm5 22:41 Pulse 52 MON; Pulse Ox 95% ; tm5 22:56 BP 100 / 58 (auto/); tm5 22:56 Pulse 51 MON; Pulse Ox 96% ; tm5 23:14 BP 117 / 76 (auto/); tm5 23:14 Pulse 50 MON; Pulse Ox 94% on R/A; tm5 23:56 BP 127 / 57 (auto/); tm5 23:56 Pulse 52 MON; Pulse Ox 96% ; tm5 06/28 00:11 BP 116 / 64 (auto/); tm5 00:11 Pulse 51 MON; Resp 18; Pulse Ox 96% on R/A; Pain 4/10; tm5 00:26 BP 109 / 59 (auto/); tm5 00:26 Pulse 51 MON; Resp 16; Pulse Ox 96% on R/A; Pain 2/10; tm5 00:41 BP 116 / 65 (auto/); tm5 00:41 Pulse 54 MON; tm5 00:56 BP 109 / 59 (auto/); tm5 00:56 Pulse 52 MON; tm5 01:11 BP 108 / 58 (auto/); tm5 01:11 Pulse 47 MON; tm5 01:26 BP 115 / 67 (auto/); tm5 01:26 Pulse 49 MON; Resp 16; Temp 98.2(O); Pulse Ox 96% on R/A; Pain 4/10; tm5 06/27 20:57 Body Mass Index 56.72 (169.20 kg, 172.72 cm) rs3 Trauma Score (Adult): 06/27 20:57 Eye Response: spontaneous(1); Verbal Response: oriented(1); Motor Response: obeys rs3 commands(2); Systolic BP: > 89 mm Hg(4); Respiratory Rate: 10 to 29 per min(4); Shahida Score: 15; Trauma Score: 12 MDM: 21:01 Mine Boss/Pulse Ox/q 15 min VS ordered. mm11 21:01 IV Saline Lock ordered. mm11 21:01 Rhythm Strip to chart ordered. mm11 21:01 Trauma Level 2 Designation ordered. mm11 21:01 Vascular checks q1h, notify provider if change in condition ordered. mm11 21:01 NS 0.9% 1000 ml IV at 150 mL/hr continuous ordered. mm11 21:02 Basic Metabolic Profile Ordered. EDMS 21:02 CBC with Diff Ordered. EDMS 21:02 Liver Profile Ordered. EDMS 21:02 Type and Cross, Packed Cells Ordered. EDMS 21:02 Chest, 1 View Ordered. EDMS 21:03 TYPE & SCREEN Ordered. EDMS 21:04 Pelvis Ordered. EDMS 21:04 Femur Ordered. EDMS 21:04 Tibia/Fibula Ordered. EDMS 21:04 ECG WITH READING ER PHYS+CARDIAG ordered. EDMS 21:04 morphine 4 mg IVP every 30 minutes; Document pain score/vitals after each dose (Hold if mm11 SBP < 90mmHg) x2 ordered. 21:06 Ondansetron 4 mg IVP once ordered. mm11 21:40 CBC with Diff Reviewed. mm11 21:40 TYPE & SCREEN Reviewed. mm11 21:44 NS 0.9% 1000 ml IV at bolus once ordered. mm11 21:47 Basic Metabolic Profile Reviewed. mm11 21:47 Liver Profile Reviewed. mm11 23:55 Admission Orders was scanned into [employer] and attached to record. tm 06/28 00:15 [facility] Payment Agreement was scanned into [employer] and attached to record. [facility] 00:15 Financial registration complete. [facility] 00:56 TYPE & SCREEN Reviewed. mm11 01:57 COMPLETE BLOOD COUNT Ordered. EDMS 01:57 BASIC METABOLIC PROFILE Ordered. EDMS 01:57 CREATINE PHOSPHOKINASE Ordered. EDMS 01:58 THYROID STIMULATING HORMONE Ordered. EDMS 01:58 MAGNESIUM LEVEL Ordered. EDMS 01:58 PT & APTT Ordered. EDMS 10:35 T-Sheet-- Draft Copy was scanned into [employer] and attached to record. gb 10:36 ECG/EKG was scanned into [employer] and attached to record. gb Administered Medications: 06/27 21:18 Drug: NS 0.9% 1000 ml [sodium chloride 0.9 % intravenous solution] Route: IV; Rate: 150 rs3 mL/hr; Site: right antecubital; 21:18 Drug: morphine 4 mg [morphine 4 mg/mL intravenous cartridge (1 mL)] Route: IVP; Site: rs3 right antecubital; 22:24 Follow up: BP 90 / 53; Pulse 48 bpm; Resp 18 bpm; Pulse Ox 99% RA; Pain 3/10 Adult rs3 21:18 Drug: Ondansetron 4 mg [ondansetron HCl 2 mg/mL intravenous solution (2 mL)] Route: rs3 IVP; Site: right antecubital; 23:31 Follow up: Response: Nausea is resolved; No Adverse Reaction tm5 22:07 Drug: NS 0.9% 1000 ml [sodium chloride 0.9 % intravenous solution] Route: IV; Rate: sls1 bolus; Site: right antecubital; 23:23 Follow up: IV Status: Completed infusion; IV Intake: 1000ml tm5 23:31 Drug: morphine 4 mg [morphine 4 mg/mL intravenous cartridge (1 mL)] Route: IVP; Site: tm5 right antecubital; 06/28 00:00 Follow up: Response: No Adverse Reaction; Pain is decreased tm5 Signatures: Dispatcher [employer] EDMS Nadege Landa RN RN daq Barnhardt, Gloria, Carl Culp DO DO mm11 Lani GillRN RN rs3 Criss Méndez, HOSE WRAPPER HOSE WRAPPER tmm1 Janett Bowles [facility] Luz Valenzuela RN RN tm5 Abi Light RN sls1 The chart was reviewed and I authenticate all verbal orders and agree with the evaluation and treatment provided.Corrections: (The following items were deleted from the chart) 06/27 22:01 21:53 CT-Femur WITHOUT CONTRAST ordered. EDMS EDMS Attachments: 23:55 Admission Orders tmm1 06/28 00:15 [facility] Payment Agreement [facility] 10:35 T-Sheet-- Draft Copy gb 10:36 ECG/EKG Chart Complete MTDD
--- NOTE | 2016-06-30 03:03 | EDDOCDS ---
Physician Documentation [facility] Name: Marcello Chilel Age: 61 yrs Sex: Male : 1955 Arrival Date: 06/27/2016 Time: 20:45 Bed 3 Private MD: Kylah Klein Disposition: 06/28/16 01:04 Hospitalization ordered by Major Jama for Inpatient Admission. Preliminary diagnosis is Crushing injury of hip and thigh. - Bed requested for 4 [facility]. - Status is Inpatient Admission. tm5 - Condition is Stable. - Problem is an acute exacerbation. - Symptoms have improved. Historical: - Allergies: no known allergies; - Home Meds: 1. aspirin 81 mg Oral TbEC 1 tab once daily 2. atorvastatin 40 mg oral tab 1 tab once daily 3. ramipril 2.5 mg Oral cap 1 cap once daily 4. metoprolol succinate 25 mg Tb24 1 tab once daily - PMHx: High Cholesterol; Hypertension; [place]; - PSHx: triple bypass; sternotomy wires removed; carotid artery surgery and replacement with bovine vein?; R CEA with bovine prostetic; - Immunization history: Last tetanus immunization: unknown. - Family history: Not pertinent. - Social history: Smoking status: Patient uses tobacco products, current every day smoker. No barriers to communication noted, The patient speaks fluent Yakut. - Last oral intake was: 11.30 am. - : The pt / caregiver states he / she is not on anticoagulants. Home medication list is obtained from the patient. Vital Signs: 06/27 20:57 BP 120 / 67; Pulse 74; Resp 20; Temp 97.4(TE); Pulse Ox 96% ; Weight 169.2 kg / 373.02 rs3 lbs; Height 5 ft. 8 in. (172.72 cm); Pain 6/10; 20:58 BP 120 / 67 (auto/); rs3 21:00 BP 115 / 69 (auto/); rs3 21:02 Pulse Ox 96% ; rs3 21:15 BP 100 / 55 (auto/); rs3 21:17 Pulse 63 MON; Pulse Ox 94% ; rs3 21:41 BP 85 / 40 (auto/); rs3 21:44 BP 90 / 54 (auto/); rs3 21:53 Pulse 48 MON; Pulse Ox 93% ; rs3 21:56 BP 85 / 42 (auto/); rs3 22:00 Pulse 53 MON; Pulse Ox 96% ; rs3 22:11 BP 99 / 53 (auto/); rs3 22:24 Pulse 52 MON; Pulse Ox 96% ; rs3 22:24 BP 90 / 53; Pulse 48; Resp 18; Pulse Ox 99% on R/A; Pain 3/10; rs3 22:41 BP 91 / 52 (auto/); tm5 22:41 Pulse 52 MON; Pulse Ox 95% ; tm5 22:56 BP 100 / 58 (auto/); tm5 22:56 Pulse 51 MON; Pulse Ox 96% ; tm5 23:14 BP 117 / 76 (auto/); tm5 23:14 Pulse 50 MON; Pulse Ox 94% on R/A; tm5 23:56 BP 127 / 57 (auto/); tm5 23:56 Pulse 52 MON; Pulse Ox 96% ; tm5 06/28 00:11 BP 116 / 64 (auto/); tm5 00:11 Pulse 51 MON; Resp 18; Pulse Ox 96% on R/A; Pain 4/10; tm5 00:26 BP 109 / 59 (auto/); tm5 00:26 Pulse 51 MON; Resp 16; Pulse Ox 96% on R/A; Pain 2/10; tm5 00:41 BP 116 / 65 (auto/); tm5 00:41 Pulse 54 MON; tm5 00:56 BP 109 / 59 (auto/); tm5 00:56 Pulse 52 MON; tm5 01:11 BP 108 / 58 (auto/); tm5 01:11 Pulse 47 MON; tm5 01:26 BP 115 / 67 (auto/); tm5 01:26 Pulse 49 MON; Resp 16; Temp 98.2(O); Pulse Ox 96% on R/A; Pain 4/10; tm5 06/27 20:57 Body Mass Index 56.72 (169.20 kg, 172.72 cm) rs3 Trauma Score (Adult): 06/27 20:57 Eye Response: spontaneous(1); Verbal Response: oriented(1); Motor Response: obeys rs3 commands(2); Systolic BP: > 89 mm Hg(4); Respiratory Rate: 10 to 29 per min(4); Shahida Score: 15; Trauma Score: 12 MDM: 21:01 Vat Skimmer/Pulse Ox/q 15 min VS ordered. mm11 21:01 IV Saline Lock ordered. mm11 21:01 Rhythm Strip to chart ordered. mm11 21:01 Trauma Level 2 Designation ordered. mm11 21:01 Vascular checks q1h, notify provider if change in condition ordered. mm11 21:01 NS 0.9% 1000 ml IV at 150 mL/hr continuous ordered. mm11 21:02 Basic Metabolic Profile Ordered. EDMS 21:02 CBC with Diff Ordered. EDMS 21:02 Liver Profile Ordered. EDMS 21:02 Type and Cross, Packed Cells Ordered. EDMS 21:02 Chest, 1 View Ordered. EDMS 21:03 TYPE & SCREEN Ordered. EDMS 21:04 Pelvis Ordered. EDMS 21:04 Femur Ordered. EDMS 21:04 Tibia/Fibula Ordered. EDMS 21:04 ECG WITH READING ER PHYS+CARDIAG ordered. EDMS 21:04 morphine 4 mg IVP every 30 minutes; Document pain score/vitals after each dose (Hold if mm11 SBP < 90mmHg) x2 ordered. 21:06 Ondansetron 4 mg IVP once ordered. mm11 21:40 CBC with Diff Reviewed. mm11 21:40 TYPE & SCREEN Reviewed. mm11 21:44 NS 0.9% 1000 ml IV at bolus once ordered. mm11 21:47 Basic Metabolic Profile Reviewed. mm11 21:47 Liver Profile Reviewed. mm11 23:55 Admission Orders was scanned into [employer] and attached to record. tm 06/28 00:15 [facility] Payment Agreement was scanned into [employer] and attached to record. [facility] 00:15 Financial registration complete. [facility] 00:56 TYPE & SCREEN Reviewed. mm11 01:57 COMPLETE BLOOD COUNT Ordered. EDMS 01:57 BASIC METABOLIC PROFILE Ordered. EDMS 01:57 CREATINE PHOSPHOKINASE Ordered. EDMS 01:58 THYROID STIMULATING HORMONE Ordered. EDMS 01:58 MAGNESIUM LEVEL Ordered. EDMS 01:58 PT & APTT Ordered. EDMS 10:35 T-Sheet-- Draft Copy was scanned into [employer] and attached to record. gb 10:36 ECG/EKG was scanned into [employer] and attached to record. gb Administered Medications: 06/27 21:18 Drug: NS 0.9% 1000 ml [sodium chloride 0.9 % intravenous solution] Route: IV; Rate: 150 rs3 mL/hr; Site: right antecubital; 21:18 Drug: morphine 4 mg [morphine 4 mg/mL intravenous cartridge (1 mL)] Route: IVP; Site: rs3 right antecubital; 22:24 Follow up: BP 90 / 53; Pulse 48 bpm; Resp 18 bpm; Pulse Ox 99% RA; Pain 3/10 Adult rs3 21:18 Drug: Ondansetron 4 mg [ondansetron HCl 2 mg/mL intravenous solution (2 mL)] Route: rs3 IVP; Site: right antecubital; 23:31 Follow up: Response: Nausea is resolved; No Adverse Reaction tm5 22:07 Drug: NS 0.9% 1000 ml [sodium chloride 0.9 % intravenous solution] Route: IV; Rate: sls1 bolus; Site: right antecubital; 23:23 Follow up: IV Status: Completed infusion; IV Intake: 1000ml tm5 23:31 Drug: morphine 4 mg [morphine 4 mg/mL intravenous cartridge (1 mL)] Route: IVP; Site: tm5 right antecubital; 06/28 00:00 Follow up: Response: No Adverse Reaction; Pain is decreased tm5 Signatures: Dispatcher [employer] EDMS Nadege Landa RN RN daq Barnhardt, Gloria, Carl Culp DO DO mm11 Lani GillRN RN rs3 Criss Méndez, MARBLE SUPERVISOR MARBLE SUPERVISOR tmm1 Janett Bowles [facility] Luz Valenzuela RN RN tm5 Abi Light RN sls1 The chart was reviewed and I authenticate all verbal orders and agree with the evaluation and treatment provided.Corrections: (The following items were deleted from the chart) 06/27 22:01 21:53 CT-Femur WITHOUT CONTRAST ordered. EDMS EDMS Attachments: 23:55 Admission Orders tmm1 06/28 00:15 [facility] Payment Agreement [facility] 10:35 T-Sheet-- Draft Copy gb 10:36 ECG/EKG Chart Complete MTDD
--- NOTE | 2016-06-30 03:05 | EDDOCDS ---
Nurse's Notes [facility] Name: Marcello Chilel Age: 61 yrs Sex: Male : 1955 Arrival Date: 06/27/2016 Time: 20:45 Bed 3 Private MD: Kylah Klein Diagnosis: Crushing injury of hip and thigh Presentation: 06/27 20:47 Presenting complaint: EMS states: Had truck maribel \R\ 1000 ibs weight fell on his right rs3 thigh around 3.30 pm this evening. patient drove to [place] when he got out of the truck had syncopal episode an hour ago. he was conscious upon EMS arrival. BP 78/ 48. Method of arrival: Ambulance: direct to room. Care prior to arrival: Medications administered prior to arrival: Saline lock initiated. right leg Traction applied. Mechanism of Injury: Crush injury from TRuck maribel. Trauma event details: Loss of Consciousness: No. Injury occurred on a street or highway. Injury occurred June 27, 2016 Injury occurred at 20:00. 20:47 Acuity: FANI Level 2 rs3 06/28 01:31 Adult Sepsis Screening: The patient does not have new or worsening altered mentation. tm5 Patient's respiratory rate is less than 22. Systolic blood pressure is greater than 100. Patient has a qSOFA score of 0- Negative Sepsis Screen. Suicide/Homicide risk assessment- the patient denies having any suicidal and/or homicidal ideations and does not present with any other emotional, behavioral or mental health complaints. Status: Patient is not a retail customer service representative or dependent. Transition of care: patient was not received from another setting of care. Triage Assessment: 01:31 Pt Declines HIV testing. tm5 Historical: - Allergies: no known allergies; - Home Meds: 1. aspirin 81 mg Oral TbEC 1 tab once daily 2. atorvastatin 40 mg oral tab 1 tab once daily 3. ramipril 2.5 mg Oral cap 1 cap once daily 4. metoprolol succinate 25 mg Tb24 1 tab once daily - PMHx: High Cholesterol; Hypertension; MO; - PSHx: triple bypass; sternotomy wires removed; carotid artery surgery and replacement with bovine vein?; R CEA with bovine prostetic; - Immunization history: Last tetanus immunization: unknown. - Family history: Not pertinent. - Social history: Smoking status: Patient uses tobacco products, current every day smoker. No barriers to communication noted, The patient speaks fluent Telugu. - Last oral intake was: 11.30 am. - : The pt / caregiver states he / she is not on anticoagulants. Home medication list is obtained from the patient. Screenin/19 21:01 Primary language is Telugu. Fall risk: No risks identified. Assistance ADL's: requires rs3 no assistance with activities of daily living. Abuse/DV Screen: The patient / caregiver reports he/she is: not in a situation that causes fear, pain or injury. Nutritional screening: No deficits noted. Exposure Risk Screening: None identified. Advance Directives: Currently, there is no health care proxy. There is no active DNR order. home support is adequate. 06/28 01:26 Screening information is obtained from the patient. tm5 Assessment: 06/27 21:22 General: Appears uncomfortable, Behavior is appropriate for age, cooperative. Pain: rs3 Location: right quadriceps. Neurological: Level of Consciousness is awake, alert, Oriented to person, place, time. Cardiovascular: Capillary refill < 3 seconds Clubbing of nail beds is absent. Respiratory: Airway is patent Respiratory effort is even, unlabored. Derm: pedal pulses +2 Swollen area noted on right quadriceps. Musculoskeletal: Circulation, motion, and sensation intact Capillary refill < 3 seconds No deformity noted Swelling present in right quadriceps Signs and Symptoms of Compartment Syndrome: no signs of compartment syndrome. 22:26 General: Appears in no apparent distress, reports of pain level improved 5/10. returned rs3 from CT. tolerated procedure well. denies of chest pain/distress. . Derm: right pedal pulse non-palpable. absent Doppler. weak dorsalis pedis R foot. L foot strong pedal pulse +. Musculoskeletal: Circulation, motion, and sensation intact Capillary refill is > 3 seconds. 23:32 Reassessment: Patient appears in no apparent distress at this time. Patient states tm5 feeling better. Patient states symptoms have improved. Cardiovascular: right pedal pulse non-palpable, pt states that his right leg was used for vein removal for his by-pass surgery so he normally has weak pedal pulses in right foot any ways, was able to auscultate right pedal pulse with doppler, pulse weaker than left pedal pulse but is present Rhythm is sinus bradycardia No ectopy. 06/28 00:38 Reassessment: Patient appears in no apparent distress at this time. Patient states tm5 feeling better. Patient states symptoms have improved. Neurological: Level of Consciousness is awake, alert, Oriented to person, place, time. Cardiovascular: Rhythm is sinus bradycardia. Cardiovascular: auscultated right pedal pulse with doppler again, remains weak but present. Respiratory: Airway is patent Respiratory effort is even, unlabored. 01:32 EENT: No deficits noted. Cardiovascular: Rhythm is sinus bradycardia. GI: No deficits tm5 noted. : No deficits noted. Injury Description: Bruise sustained to right thigh. 01:34 Neurological: Pupils are PERRLA. tm5 01:43 General: SBAR was received by 4 PAV. tm5 01:51 General: 4 PAV ready for pt's admission to the floor, awaiting Hospitalist to complete tm5 pt's chart . 01:52 Reassessment: Critical care time stopped, patient has stabilized. Patient states tm5 feeling better. Patient states symptoms have improved. pt resting quietly on stretcher with eyes closed, resp easy, no s/s of any distress. Vital Signs: 06/27 20:57 BP 120 / 67; Pulse 74; Resp 20; Temp 97.4(TE); Pulse Ox 96% ; Weight 169.2 kg; Height 5 rs3 ft. 8 in. (172.72 cm); Pain 6/10; 20:58 BP 120 / 67 (auto/); rs3 21:00 BP 115 / 69 (auto/); rs3 21:02 Pulse Ox 96% ; rs3 21:15 BP 100 / 55 (auto/); rs3 21:17 Pulse 63 MON; Pulse Ox 94% ; rs3 21:41 BP 85 / 40 (auto/); rs3 21:44 BP 90 / 54 (auto/); rs3 21:53 Pulse 48 MON; Pulse Ox 93% ; rs3 21:56 BP 85 / 42 (auto/); rs3 22:00 Pulse 53 MON; Pulse Ox 96% ; rs3 22:11 BP 99 / 53 (auto/); rs3 22:24 Pulse 52 MON; Pulse Ox 96% ; rs3 22:24 BP 90 / 53; Pulse 48; Resp 18; Pulse Ox 99% on R/A; Pain 3/10; rs3 22:41 BP 91 / 52 (auto/); tm5 22:41 Pulse 52 MON; Pulse Ox 95% ; tm5 22:56 BP 100 / 58 (auto/); tm5 22:56 Pulse 51 MON; Pulse Ox 96% ; tm5 23:14 BP 117 / 76 (auto/); tm5 23:14 Pulse 50 MON; Pulse Ox 94% on R/A; tm5 23:56 BP 127 / 57 (auto/); tm5 23:56 Pulse 52 MON; Pulse Ox 96% ; tm5 06/28 00:11 BP 116 / 64 (auto/); tm5 00:11 Pulse 51 MON; Resp 18; Pulse Ox 96% on R/A; Pain 4/10; tm5 00:26 BP 109 / 59 (auto/); tm5 00:26 Pulse 51 MON; Resp 16; Pulse Ox 96% on R/A; Pain 2/10; tm5 00:41 BP 116 / 65 (auto/); tm5 00:41 Pulse 54 MON; tm5 00:56 BP 109 / 59 (auto/); tm5 00:56 Pulse 52 MON; tm5 01:11 BP 108 / 58 (auto/); tm5 01:11 Pulse 47 MON; tm5 01:26 BP 115 / 67 (auto/); tm5 01:26 Pulse 49 MON; Resp 16; Temp 98.2(O); Pulse Ox 96% on R/A; Pain 4/10; tm5 06/27 20:57 Body Mass Index 56.72 (169.20 kg, 172.72 cm) rs3 Vitals: 06/27 20:57 Trauma Level: One. rs3 06/28 01:31 Log In Time N/A - ambulance arrival. tm5 Trauma Score (Adult): 06/27 20:57 Eye Response: spontaneous(1); Verbal Response: oriented(1); Motor Response: obeys rs3 commands(2); Systolic BP: > 89 mm Hg(4); Respiratory Rate: 10 to 29 per min(4); [place] Score: 15; Trauma Score: 12 ED Course: 20:46 Patient visited by Criss Méndez PCA. tmm1 20:46 Patient moved to Waiting tmm1 20:47 Kylah Klein is Private Physician. tmm1 20:47 Soosairaj,Lani,RN is Primary Nurse. tmm1 20:47 Patient moved to 3 tmm1 20:52 Carl Snyder DO is Attending Physician. mm11 20:53 Patient visited by Carl Snyder DO. mm11 20:54 Triage Initiated rs3 20:59 Patient visited by Carl Snyder DO. mm11 21:05 TYPE & SCREEN Sent. sls1 21:05 Basic Metabolic Profile Sent. sls1 21:05 CBC with Diff Sent. sls1 21:05 Liver Profile Sent. sls1 21:05 Type and Cross, Packed Cells Sent. sls1 21:22 Patient visited by Braxton Sheppard PCA. jmv 21:22 EKG done. (by ED staff). Reviewed by Carl Snyder DO. jmv 22:23 Patient visited by Lani Gill RN. rs3 23:22 Patient visited by Luz Valenzuela,MAHNAZ. tm5 23:55 Admission Orders was scanned into xAd and attached to record. tmm1 06/28 00:15 [facility] Payment Agreement was scanned into xAd and attached to record. slh 00:38 Patient visited by Luz Valenzuela,MAHNAZ. tm5 01:04 Major Jama is Hospitalizing Provider. mm11 01:26 Awaiting bed assignment. tm5 01:26 The patient / caregiver is instructed regarding the plan of care and ED course. Cardiac tm5 monitor on. Pulse ox on. NIBP on. 01:26 Inserted saline lock: 20 gauge in right antecubital area this RN is documenting noted tm5 IV saline lock to Right AC that off going RN did not document. No procedures done that require assistance. 01:28 Patient visited by Luz Valenzuela RN. tm5 01:43 Patient visited by Luz Valenzuela,MAHNAZ. tm5 01:57 Femur Returned. EDMS 10:35 T-Sheet-- Draft Copy was scanned into xAd and attached to record. gb 10:36 ECG/EKG was scanned into xAd and attached to record. gb Administered Medications: 06/27 21:18 Drug: NS 0.9% 1000 ml [sodium chloride 0.9 % intravenous solution] Route: IV; Rate: 150 rs3 mL/hr; Site: right antecubital; 21:18 Drug: morphine 4 mg [morphine 4 mg/mL intravenous cartridge (1 mL)] Route: IVP; Site: rs3 right antecubital; 22:24 Follow up: BP 90 / 53; Pulse 48 bpm; Resp 18 bpm; Pulse Ox 99% RA; Pain 08/16 Adult rs3 21:18 Drug: Ondansetron 4 mg [ondansetron HCl 2 mg/mL intravenous solution (2 mL)] Route: rs3 IVP; Site: right antecubital; 23:31 Follow up: Response: Nausea is resolved; No Adverse Reaction tm5 22:07 Drug: NS 0.9% 1000 ml [sodium chloride 0.9 % intravenous solution] Route: IV; Rate: sls1 bolus; Site: right antecubital; 23:23 Follow up: IV Status: Completed infusion; IV Intake: 1000ml tm5 23:31 Drug: morphine 4 mg [morphine 4 mg/mL intravenous cartridge (1 mL)] Route: IVP; Site: tm5 right antecubital; 06/28 00:00 Follow up: Response: No Adverse Reaction; Pain is decreased tm5 Intake: 06/27 20:57 PO: 0.00ml; Total: 0.00ml. rs3 23:23 IV: 1000.00ml; Total: 1000.00ml. tm5 Output: 20:57 Urine: 0.00ml; Total: 0.00ml. rs3 Order Results: Lab Order: Basic Metabolic Profile; SPEC'M 06/27/16 21:04 Test: GLUCOSE, FASTING; Value: 103; Range: 80-110; Units: MG/DL; Status: F Test: BLOOD UREA NITROGEN; Value: 18; Range: 7-18; Units: MG/DL; Status: F Test: CREATININE FOR GFR; Value: 1.23; Range: 0.70-1.30; Units: MG/DL; Status: F Test: GLOMERULAR FILTRATION RATE; Value: > 60.0; Range: >49; Status: F Test: SODIUM LEVEL; Value: 142; Range: 136-145; Units: MEQ/L; Status: F Test: POTASSIUM SERUM; Value: 4.3; Range: 3.5-5.1; Units: MEQ/L; Status: F Test: CHLORIDE LEVEL; Value: 105; Range: 98-107; Units: MEQ/L; Status: F Test: CARBON DIOXIDE LEVEL; Value: 29; Range: 21-32; Units: MEQ/L; Status: F Test: ANION GAP; Value: 8; Range: 8-16; Units: MEQ/L; Status: F Test: CALCIUM LEVEL; Value: 8.4; Range: 8.8-10.2; Abnormal: Below low normal; Units: MG/DL; Status: F Test Note: ; Units are mL/min/1.73 m2 Chronic Kidney Disease Staging per NKF: Stage I & II GFR >=60 Normal to Mildly Decreased Stage III GFR 30-59 Moderately Decreased Stage IV GFR 15-29 Severely Decreased Stage V GFR <15 Very Little GFR Left ESRD GFR <15 on ROLL FORM OPERATOR Lab Order: CBC with Diff; SPEC'M 06/27/16 21:04 Test: WHITE BLOOD COUNT; Value: 12.2; Range: 4.0-10.0; Abnormal: Above high normal; Units: K/mm3; Status: F Test: RED BLOOD COUNT; Value: 5.16; Range: 4.30-6.10; Units: M/mm3; Status: F Test: HEMOGLOBIN; Value: 14.6; Range: 14.0-18.0; Units: g/dl; Status: F Test: HEMATOCRIT; Value: 44.1; Range: 42.0-52.0; Units: %; Status: F Test: MEAN CORPUSCULAR VOLUME; Value: 85.4; Range: 80.0-96.0; Units: fl; Status: F Test: MEAN CORPUSCULAR HEMOGLOBIN; Value: 28.3; Range: 27.0-33.0; Units: pg; Status: F Test: MEAN CORPUSCULAR HGB CONC; Value: 33.2; Range: 32.0-36.5; Units: g/dl; Status: F Test: RED CELL DISTRIBUTION WIDTH; Value: 12.8; Range: 11.5-14.5; Units: %; Status: F Test: PLATELET COUNT, AUTOMATED; Value: 238; Range: 150-450; Units: k/mm3; Status: F Test: NEUTROPHILS %; Value: 79.9; Range: 36.0-66.0; Abnormal: Above high normal; Units: %; Status: F Test: LYMPH %; Value: 12.6; Range: 24.0-44.0; Abnormal: Below low normal; Units: %; Status: F Test: MONO %; Value: 5.1; Range: 0.0-5.0; Abnormal: Above high normal; Units: %; Status: F Test: EOS %; Value: 0.7; Range: 0.0-3.0; Units: %; Status: F Test: BASO %; Value: 0.4; Range: 0.0-1.0; Units: %; Status: F Test: LARGE UNSTAINED CELL %; Value: 1.4; Range: 0.0-4.0; Units: %; Status: F Test: NEUTROPHILS #; Value: 9.8; Range: 1.8-7.7; Abnormal: Above high normal; Units: K/mm3; Status: F Test: LYMPH #; Value: 1.5; Range: 1.5-4.5; Units: K/mm3; Status: F Test: MONO #; Value: 0.6; Range: 0.0-0.8; Units: K/mm3; Status: F Test: EOS #; Value: 0.1; Range: 0.0-0.50; Units: K/mm3; Status: F Test: BASO #; Value: 0.0; Range: 0.0-0.2; Units: K/mm3; Status: F Test: LARGE UNSTAINED CELL #; Value: 0.2; Range: 0.0-0.4; Units: K/mm3; Status: F Lab Order: Liver Profile; SPEC'M 06/27/16 21:04 Test: AST/SGOT; Value: 11; Range: 15-37; Abnormal: Below low normal; Units: U/L; Status: F Test: ALT/SGPT; Value: 22; Range: 12-78; Units: U/L; Status: F Test: ALKALINE PHOSPHATASE; Value: 75; Range: 45-117; Units: U/L; Status: F Test: BILIRUBIN,TOTAL; Value: 0.4; Range: 0.2-1.0; Units: MG/DL; Status: F Test: BILIRUBIN,DIRECT; Value: 0.1; Range: 0.0-0.2; Units: MG/DL; Status: F Test: TOTAL PROTEIN; Value: 6.2; Range: 6.4-8.2; Abnormal: Below low normal; Units: GM/DL; Status: F Test: ALBUMIN; Value: 3.6; Range: 3.2-5.2; Units: GM/DL; Status: F Test: ALBUMIN/GLOBULIN RATIO; Value: 1.38; Range: 1.00-1.93; Status: F Lab Order: TYPE & SCREEN; SPEC'M 06/27/16 21:04 Test: BLOOD TYPE; Value: A POS; Status: F Test: AB SCREEN (INDIRECT DEMAR)GEL; Value: NEGATIVE; Status: F Test: IMMEDIATE SPIN CROSSMATCH; Value: [id number] A NEGATIVE Compatible? Y; Status: F Test: IMMEDIATE SPIN CROSSMATCH; Value: [id number] A POSITIVE Compatible? Y; Status: F Radiology Order: Femur Test: Femur REASON FOR EXAMINATION: Trauma; Clinical: Trauma.; ; Technique: AP and frog lateral views of the right femur.; ; Findings:; Degenerative changes at the hip and knee joint noted. No acute fracture or; dislocation. Soft tissues grossly unremarkable. Surgical clips along the medial; five likely related to prior vascular surgery.; ; Impression:; Degenerative changes. No acute fracture or dislocation.; ; ; Signed by; Perry Wallace MD 06/28/2016 01:48 A; Outcome: 06/28 01:04 Decision to Hospitalize by Provider. mm11 01:33 Discharge Assessment: Patient awake, alert and oriented x 3. No cognitive and/or tm5 functional deficits noted. Patient verbalized understanding of disposition instructions. patient administered narcotics - yes. Patient was admitted to the hospital or transferred to another facility. The following High Risk Discharge criteria are identified: None. Admitted to Med/Surg accompanied by tech, via stretcher, with chart. Condition: good Condition: stable Condition: improved. CT Study completed. Property :Personal belongings accompany Pt. 02:02 Patient left the ED. tm5 Signatures: Dispatcher [employer] EDMS Nory Barber, Britton Reg Carl Winkler, DO mm11 Lani Gill,RN RN rs3 Abi Light RN RN sls1 Criss Méndez, MANUAL CONTROL AUGER PRESS OPERATOR MANUAL CONTROL AUGER PRESS OPERATOR tmm1 Janett Bowles Braxton Marquez, MANUAL CONTROL AUGER PRESS OPERATOR MANUAL CONTROL AUGER PRESS OPERATOR Luz Riggins RN RN tm5 Chart Complete MTDD
[2016-06-30 06:00] VITALS: BP 133/74
[2016-06-30 06:54] LABS: MEAN CORPUSCULAR HGB CONC 33.5 g/dl (32.0-36.5); MEAN CORPUSCULAR VOLUME 86.5 fl (80.0-96.0); RED CELL DISTRIBUTION WIDTH 12.9 % (11.5-14.5)
[2016-06-30 06:59] LABS: ANION GAP 4 MEQ/L (8-16); BLOOD UREA NITROGEN 13 MG/DL (7-18); CALCIUM LEVEL 8.1 MG/DL (8.8-10.2); CARBON DIOXIDE LEVEL 32 MEQ/L (21-32); CHLORIDE LEVEL 106 MEQ/L (98-107); CREATININE FOR GFR 0.98 MG/DL (0.70-1.30); GLOMERULAR FILTRATION RATE > 60.0 (>49); GLUCOSE, FASTING 89 MG/DL (80-110); MAGNESIUM LEVEL 2.2 MG/DL (1.8-2.4); POTASSIUM SERUM 4.4 MEQ/L (3.5-5.1); SODIUM LEVEL 142 MEQ/L (136-145)
[2016-06-30] MEDS: MOM 30ML SUSPENSION UDC PO SCH (08:28)
[2016-06-30] MEDS: MIRALAX *UNIT DOSE* 17GM PACKET PO SCH (08:29)
[2016-06-30] MEDS: METOPROLOL SUCC *XL* 25MG TAB (TopROL *XL*) PO SCH (08:30)
[2016-06-30 14:00] VITALS: BP 148/78
[2016-06-30] MEDS: ATORVASTATIN 20 MG TAB PO SCH (19:37)
[2016-06-30 22:00] VITALS: BP 133/60
[2016-07-01 06:00] VITALS: BP 164/72
[2016-07-01 06:44] LABS: MEAN CORPUSCULAR HEMOGLOBIN 29.1 pg (27.0-33.0); MEAN CORPUSCULAR HGB CONC 33.8 g/dl (32.0-36.5); MEAN CORPUSCULAR VOLUME 86.2 fl (80.0-96.0); RED CELL DISTRIBUTION WIDTH 12.8 % (11.5-14.5); WHITE BLOOD COUNT 6.8 K/mm3 (4.0-10.0)
[2016-07-01 07:19] LABS: ANION GAP 7 MEQ/L (8-16); BLOOD UREA NITROGEN 12 MG/DL (7-18); CALCIUM LEVEL 8.2 MG/DL (8.8-10.2); CARBON DIOXIDE LEVEL 30 MEQ/L (21-32); CHLORIDE LEVEL 105 MEQ/L (98-107); CREATININE FOR GFR 0.95 MG/DL (0.70-1.30); GLOMERULAR FILTRATION RATE > 60.0 (>49); GLUCOSE, FASTING 86 MG/DL (80-110); MAGNESIUM LEVEL 2.3 MG/DL (1.8-2.4); POTASSIUM SERUM 4.3 MEQ/L (3.5-5.1); SODIUM LEVEL 142 MEQ/L (136-145)
[2016-07-01] MEDS ORDERED: ASPI81TA13 PO (07:34)
[2016-07-01] MEDS ORDERED: CEFD1CAP8 PO (07:34)
--- NOTE | 2016-07-01 08:07 | IPN ---
DATE OF VISIT: 06/30/2016 The patient was seen and examined. No acute events overnight. Denies any fever or chills. Continues to report right lower extremity pain with mild blister formation. Denies any shortness of breath, chest pain, pressure discomfort. VITAL SIGNS: Temperature 97.7, pulse 45, respirations 16, blood pressure 148/78, pulse oximetry 97% on room air. LABORATORY DATA: WBC 8.0, hemoglobin 12.2, hematocrit 36.3, platelets 214. Chemistries: Sodium 142, potassium 4.4, chloride 106, bicarbonate 32, BUN 13, creatinine 0.98. PHYSICAL EXAMINATION: GENERAL: The patient obese, alert and oriented times three. No acute distress. HEENT: Normocephalic atraumatic. PULMONARY: Bilateral clear to auscultation. CARDIAC: Regular rate and rhythm, normal S1, S2. ABDOMEN: Obese, soft, nontender. Positive bowel sounds. EXTREMITIES: Right thigh,, flexor surface, large hematoma improving, soft with peripheral bruising of superficial tissue. Drain is in place putting out serosanguineous fluid. Dorsalis pedis (DP) posterior tibialis pulses (PT) pulses bilaterally 2+. 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 Farias for cardiology, dyslipidemia, coronary arterial disease, obesity. The patient was hooking up his tandem trailer when the maribel, estimated about 1000 pounds, fell on his thigh. The patient developed a hematoma. Subsequently, he presented to the hospital and was admitted under orthopedic service. PROBLEMS: 1. Crush injury of the patient's right thigh. The patient is admitted to orthopedic surgery. Medicine consulted for medical management. Images appreciated. Intravenous (IV) fluid was initially given, currently off intravenous (IV) fluids. CPK negative. Kidney function stable. Pain regimen per orthopedics. Drain is in place for hematoma by radiology. 2. Physical therapy. Withholding aspirin for now. Further management as per orthopedics. 3. Coronary arterial disease. Holding aspirin for now given hematoma. Will resume after discharge. Continue statin, metoprolol. Dr. Farias was informed. 4. Obesity, complicating care. 5. Smoking. Counseling provided. Refused nicotine patch. 6. Dyslipidemia. Continue statin. 7. Deep vein thrombosis (DVT) prophylaxis. Sequential compression device, given the patient has a hematoma. Early ambulation. DISPOSITION PLANNING: Pending primary team, physical therapy, clinical improvement. .
[2016-07-01 08:24] VITALS: BP 115/55
[2016-07-01] MEDS: METOPROLOL SUCC *XL* 25MG TAB (TopROL *XL*) PO SCH (08:24)
[2016-07-01] MEDS: MOM 30ML SUSPENSION UDC PO SCH (08:24)
[2016-07-01] MEDS: MIRALAX *UNIT DOSE* 17GM PACKET PO SCH (08:24)
[2016-07-01] MEDS ORDERED: CEFTAROLINE FOSAMIL 600 MG in D5W MINI-BAG PLUS 50 ML IV SCH (09:00)
[2016-07-01] MEDS ORDERED: HEPARIN SOD (PORCINE) 5000 UNITS/ML VIAL SQ SCH (09:00)
[2016-07-01] MEDS ORDERED: ASPIRIN 81 MG CHEW TABLET PO SCH (09:00)
[2016-07-01] MEDS ORDERED: PERC5TAB6 PO (09:03)
--- NOTE | 2016-07-01 15:18 | IPN ---
DATE: 07/01/2016 The patient is seen and examined. No acute events overnight. Denies any fevers, chills, chest pain, pressure, discomfort. Able to ambulate comfortably. VITAL SIGNS: Temperature 97.7, pulse 50, respirations 18, blood pressure 164/72, pulse oximetry 98% on room air. LABORATORY DATA: WBC 6.8, hemoglobin and hematocrit 11.4/36.7, platelets 237. Chemistry: Sodium 142, potassium 4.3, chloride 105, bicarbonate 33, BUN 12, creatinine 0.95. PHYSICAL EXAMINATION: GENERAL: The patient is obese, alert and oriented times. No acute distress. HEENT: Normocephalic, atraumatic. PULMONARY: Bilaterally clear to auscultation. CARDIAC: Regular rate and rhythm. Normal S1, S2. Mild bradyarrhythmia. ABDOMEN: Obese, soft, nontender. Positive bowel sounds. EXTREMITIES: Right thigh, flexor surface, large hematoma, improving. Soft peripheral tissue with mild bruising. Drain in place and putting out serosanguineous fluid. Dorsalis pedis and posterior tibialis pulses 2+ bilaterally. 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 Farias for cardiology, dyslipidemia, coronary arterial disease, obesity. The patient was hooking up his tandem trailer when a maribel estimated about 1000 pounds fell on his thigh and developed a hematoma. Subsequently, the patient presented to the hospital and admitted under orthopedic service. 1. Crushing injury of the patient's right thigh. The patient was admitted under the orthopedic service. Medicine consulted for medical management. Images appreciated. Initially given intravenous fluids. CPK negative. Kidney function stable. Pain regimen as per orthopedic team. Drainage initially placed by radiology and currently orthopedic team will remove the drain prior to discharge. Physical therapy. Aspirin initially held given hematoma. We will restart aspirin upon discharge. Further management as per orthopedic team. The patient most likely will be discharged today. 2. Coronary arterial disease. Restarting aspirin. Initially aspirin on hold given hematoma. Continue beta nadeen and statin. Followup with Dr. Farias, cardiology, after discharge. 3. Obesity, complicating care. 4. Smoking. Counseling provided. Refused nicotine patch. 5. Dyslipidemia. Continue statin. 6. Deep vein thrombosis (DVT) prophylaxis. Sequential compression device (SCD) given the patient has a hematoma. Early ambulation. DISPOSITION PLANNING: Likely discharge today by orthopedic team.
== END 2016-07-01 11:22 | disposition home or self-care (01) ==
LOC: M ED 20:45 → M ED INP 23:40 → M MSPAV 06-28 02:05 → M MS5PR 06-28 14:20
DX: S77.11XA Crushing injury of right thigh, initial encounter (principal); X58.XXXA Exposure to other specified factors, initial encounter; Y92.69 Other specified industrial and construction area as the place of occurrence of the external cause; E78.00 Pure hypercholesterolemia, unspecified; I10 Essential (primary) hypertension; I25.10 Atherosclerotic heart disease of native coronary artery without angina pectoris; E66.9 Obesity, unspecified; Z79.82 Long term (current) use of aspirin; Z79.899 Other long term (current) drug therapy; F17.210 Nicotine dependence, cigarettes, uncomplicated; Z95.1 Presence of aortocoronary bypass graft; Y99.0 Civilian activity done for income or pay; Y93.89 Activity, other specified
CPT/HCPCS: 10160; 36415; 71010; 72190; 73552; 73590; 73701; 76942; 80048; 80076; 82550; 82553; 83735; 84443; 85014; 85018; 85025; 85027; 85610; 85730; 86850; 86900; 86901; 86920; 87070; 87075; 87205; 90471; 90686; 93005; 93041; 96361; 96372; 96374; 96375; 96376; 97162; 97530; 99285; J0690; J2405; Q9967

== ENCOUNTER → 2016-08-07 | Outpatient (REF) | payer BC ==
[~2016-08-07] MED LIST changes: +ASPI325T PO; +ASPI81TA13 PO; +ATOR40TA PO; +CEFD1CAP8 PO; +METO25TA74 PO
== END ==
LOC: M SFHCPLAZ 09:00
PROVIDERS: ATTEND Internal Medicine Infectious Disease
DX: R53.1 Weakness (principal); R61 Generalized hyperhidrosis

== ENCOUNTER 2016-08-13 17:59 | Emergency (ER) | payer BC, OTHER ==
[~2016-08-13] VITALS: Ht 182.9 cm; Wt 145.1 kg
[2016-08-13] MEDS ORDERED: ASPI32ECTA PO (18:16)
[2016-08-13 19:37] LABS: BASO % 0.5 % (0.0-1.0); EOS # 0.2 K/mm3 (0.0-0.50); EOS % 2.1 % (0.0-3.0); LARGE UNSTAINED CELL # 0.2 K/mm3 (0.0-0.4); LARGE UNSTAINED CELL % 1.7 % (0.0-4.0); MEAN CORPUSCULAR HEMOGLOBIN 27.7 pg (27.0-33.0); MEAN CORPUSCULAR HGB CONC 32.5 g/dl (32.0-36.5); MEAN CORPUSCULAR VOLUME 85.3 fl (80.0-96.0); MONO # 0.6 K/mm3 (0.0-0.8); MONO % 6.5 % (0.0-5.0); NEUTROPHILS # 6.8 K/mm3 (1.8-7.7); NEUTROPHILS % 69.1 % (36.0-66.0); PLATELET COUNT, AUTOMATED 274 k/mm3 (150-450); RED CELL DISTRIBUTION WIDTH 12.5 % (11.5-14.5); WHITE BLOOD COUNT 9.8 K/mm3 (4.0-10.0)
[2016-08-13 19:41] LABS: INR 0.97
[2016-08-13 19:53] LABS: ALBUMIN 3.4 GM/DL (3.2-5.2); ALBUMIN/GLOBULIN RATIO 1.17 (1.00-1.93); ALKALINE PHOSPHATASE 80 U/L (45-117); ALT/SGPT 20 U/L (12-78); ANION GAP 7 MEQ/L (8-16); AST/SGOT 15 U/L (15-37); BILIRUBIN,TOTAL 0.3 MG/DL (0.2-1.0); BLOOD UREA NITROGEN 14 MG/DL (7-18); CALCIUM LEVEL 8.4 MG/DL (8.8-10.2); CARBON DIOXIDE LEVEL 30 MEQ/L (21-32); CHLORIDE LEVEL 105 MEQ/L (98-107); CREATININE FOR GFR 1.07 MG/DL (0.70-1.30); GLOMERULAR FILTRATION RATE > 60.0 (>49); GLUCOSE, FASTING 109 MG/DL (80-110); POTASSIUM SERUM 4.4 MEQ/L (3.5-5.1); SODIUM LEVEL 142 MEQ/L (136-145); TOTAL PROTEIN 6.3 GM/DL (6.4-8.2)
--- NOTE | 2016-08-13 21:10 | REPUSA ---
Clinical history: Pain, swelling. Findings: The common femoral, superficial femoral, popliteal, and other deep venous structures compre ss normally and demonstrate normal color Doppler flow. Normal venous waveforms with augmentation are seen. Large lymph nodes are seen in the inguinal regions bilaterally. The largest of these is on the right measuring 3.9 x 2.4 x 0.9 cm. Impression: No evidence of deep vein thrombosis in either femoral popliteal venous system. Bilateral inguinal lym phadenopathy.
[2016-08-13 21:24] VITALS: BP 142/76
== END 2016-08-13 21:34 | disposition home or self-care (01) ==
LOC: M ED 19:20
DX: M79.661 Pain in right lower leg (principal); F17.210 Nicotine dependence, cigarettes, uncomplicated; Z95.1 Presence of aortocoronary bypass graft

== ENCOUNTER → 2016-08-20 | Outpatient (REF) | payer OTHER ==
[~2016-08-20] MED LIST changes: +ASPI32ECTA PO
== END ==
LOC: M LAB REF 16:38
PROVIDERS: ATTEND Surgery
DX: S77.11XA Crushing injury of right thigh, initial encounter (principal); X58.XXXA Exposure to other specified factors, initial encounter; Y92.89 Other specified places as the place of occurrence of the external cause

== ENCOUNTER 2016-12-02 11:32 | Emergency (ER) | payer BC, OTHER ==
[~2016-12-02] VITALS: Ht 182.9 cm; Wt 136.4 kg
[~2016-12-02 11:32] MED LIST changes: +ASPI325T24 PO; -ASPI32ECTA PO; -ASPI81TA13 PO; +ASPI81TA24 PO; -ATOR40TA PO; +ATOR40TA75 PO; +IBUP1TAB7 PO; -IBUP800T23 PO; +METO1TAB32 PO; -METO25TA74 PO; +PERC5TAB12 PO; -PERC5TAB6 PO; -ULTR50TA PO; +ULTR50TA8 PO
[2016-12-02] MEDS ORDERED: CHLO125TA (11:46)
[2016-12-02 12:43] LABS: BASO # 0.1 K/mm3 (0.0-0.2); BASO % 0.6 % (0.0-1.0); EOS # 0.2 K/mm3 (0.0-0.50); EOS % 2.4 % (0.0-3.0); LARGE UNSTAINED CELL # 0.1 K/mm3 (0.0-0.4); LARGE UNSTAINED CELL % 1.1 % (0.0-4.0); LYMPH # 2.1 K/mm3 (1.5-4.5); LYMPH % 18.3 % (24.0-44.0); MEAN CORPUSCULAR HEMOGLOBIN 27.8 pg (27.0-33.0); MEAN CORPUSCULAR VOLUME 84.2 fl (80.0-96.0); MONO # 0.5 K/mm3 (0.0-0.8); MONO % 5.1 % (0.0-5.0); NEUTROPHILS # 7.7 K/mm3 (1.8-7.7); NEUTROPHILS % 72.5 % (36.0-66.0); PLATELET COUNT, AUTOMATED 253 k/mm3 (150-450); RED CELL DISTRIBUTION WIDTH 14.6 % (11.5-14.5); WHITE BLOOD COUNT 10.6 K/mm3 (4.0-10.0)
[2016-12-02 12:49] LABS: INR 0.89
[2016-12-02 13:08] LABS: ALKALINE PHOSPHATASE 78 U/L (45-117); ALT/SGPT 26 U/L (12-78); ANION GAP 2 MEQ/L (8-16); AST/SGOT 15 U/L (15-37); BILIRUBIN,TOTAL 0.3 MG/DL (0.2-1.0); BLOOD UREA NITROGEN 13 MG/DL (7-18); CALCIUM LEVEL 8.8 MG/DL (8.8-10.2); CARBON DIOXIDE LEVEL 33 MEQ/L (21-32); CHLORIDE LEVEL 104 MEQ/L (98-107); CREATININE FOR GFR 0.98 MG/DL (0.70-1.30); GLOMERULAR FILTRATION RATE > 60.0 (>49); GLUCOSE, FASTING 82 MG/DL (80-110); POTASSIUM SERUM 4.7 MEQ/L (3.5-5.1); SODIUM LEVEL 139 MEQ/L (136-145)
[2016-12-02 13:09] LABS: ALBUMIN 3.4 GM/DL (3.2-5.2); ALBUMIN/GLOBULIN RATIO 0.83 (1.00-1.93); BILIRUBIN,DIRECT < 0.1 MG/DL (0.0-0.2); TOTAL PROTEIN 7.5 GM/DL (6.4-8.2)
[2016-12-02 19:07] VITALS: BP 177/81
--- NOTE | 2016-12-02 20:03 | ECGEPIP ---
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
--- NOTE | 2016-12-02 20:05 | ECGEPIP ---
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
--- NOTE | 2016-12-02 20:09 | ECGEPIP ---
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
--- NOTE | 2016-12-05 15:29 | REP ---
Clinical: Chest pain and dizziness . Comparison: 06/27/2016 . Findings: The mediastinum and cardiac silhouette are stable and within normal limits for portable technique. The lung alt[place] are clear without acute consolidation, effusion, or pneumothorax. Skeletal structures are intact. Impression: Normal portable chest x-ray Signed by Perry Wallace MD 12/02/2016 12:03 P
== END 2016-12-02 19:19 | disposition home or self-care (01) ==
LOC: M ED 12:40
DX: R07.9 Chest pain, unspecified (principal); I10 Essential (primary) hypertension; E78.4 Other hyperlipidemia; F17.210 Nicotine dependence, cigarettes, uncomplicated; Z95.1 Presence of aortocoronary bypass graft

== ENCOUNTER 2017-06-12 18:35 | Emergency (ER) | payer BC, OTHER ==
[2017-06-12] MEDS: ASPIRIN 81 MG CHEW TABLET PO (19:30)
[2017-06-12] MEDS: NS 1,000 ML IV (19:30)
[2017-06-12] MEDS ORDERED: IPRATROPIUM 0.5MG/ALBUTEROL 2.5MG INH SOL UD 3ML (DUONEB)(J7620) NEB (19:30)
[2017-06-12 19:52] LABS: ABG BASE EXCESS -1.3 (-2.0-2.0); ABG HCO3 22.2 MEQ/L (22.0-26.0); ABG O2 SATURATION 97.4 % (95.0-99.0); ABG PARTIAL PRESSURE O2 86.8 mmHg (75.0-100.0); ABG STANDARD HCO3 23.4 MEQ/L (22.0-26.0); ABG TOTAL CO2 23.3 MEQ/L (23.0-31.0); ABG pH (ARTERIAL) 7.433 UNITS (7.350-7.450)
[2017-06-12 19:56] LABS: BASO # 0.1 10^3/uL (0.0-0.2); BASO % 0.6 % (0.0-1.0); EOS # 0.1 10^3/uL (0.0-0.50); EOS % 1.3 % (0.0-3.0); HEMATOCRIT 47.2 % (42.0-52.0); IMMATURE GRANULOCYTE % 0.2 % (0-0); LYMPH # 2.2 10^3/uL (1.5-4.5); LYMPH % 22.6 % (24.0-44.0); MEAN CORPUSCULAR HGB CONC 33.9 g/dl (32.0-36.5); MEAN CORPUSCULAR VOLUME 85.7 fl (80.0-96.0); MONO # 0.5 10^3/uL (0.0-0.8); MONO % 5.6 % (0.0-5.0); NEUTROPHILS # 6.8 10^3/uL (1.8-7.7); NEUTROPHILS % 69.7 % (36.0-66.0); PLATELET COUNT, AUTOMATED 256 10^3/uL (150-450); RED BLOOD COUNT 5.51 10^6/uL (4.30-6.10); RED CELL DISTRIBUTION WIDTH 13.4 % (11.5-14.5); WHITE BLOOD COUNT 9.7 10^3/uL (4.0-10.0)
[2017-06-12 20:10] LABS: INR 0.98; PROTHROMBIN TIME 13.1 SECONDS (12.4-14.5)
[2017-06-12 20:21] LABS: LACTIC ACID SEPSIS PROTOCOL 1.9 MMOL/L (0.4-2.0)
[2017-06-12 20:22] LABS: ALBUMIN 3.5 GM/DL (3.2-5.2); ALBUMIN/GLOBULIN RATIO 1.03 (1.00-1.93); ALKALINE PHOSPHATASE 61 U/L (45-117); ALT/SGPT 22 U/L (12-78); AST/SGOT 14 U/L (7-37); BILIRUBIN,DIRECT < 0.1 MG/DL (0.0-0.2); BILIRUBIN,TOTAL 0.4 MG/DL (0.2-1.0); TOTAL PROTEIN 6.9 GM/DL (6.4-8.2)
[2017-06-12] MEDS ORDERED: ISOVUE-370 76% 100ML VIAL (Q9967) As Ordered (21:28)
[2017-06-12 21:30] LABS: ANION GAP 6 MEQ/L (8-16); BLOOD UREA NITROGEN 12 MG/DL (7-18); CALCIUM LEVEL 8.6 MG/DL (8.8-10.2); CARBON DIOXIDE LEVEL 30 MEQ/L (21-32); CHLORIDE LEVEL 106 MEQ/L (98-107); CK-MB VALUE MASS 3.5 NG/ML (0.0-3.6); CPK CREATINE PHOSPHOKINASE 107 U/L (39-308); CREATININE FOR GFR 1.11 MG/DL (0.70-1.30); GLOMERULAR FILTRATION RATE > 60.0 (>49); GLUCOSE, FASTING 124 MG/DL (80-110); MB/CK RELATIVE INDEX 3.27 (< OR =4); POTASSIUM SERUM 3.9 MEQ/L (3.5-5.1); SODIUM LEVEL 142 MEQ/L (136-145); TROPONIN I < 0.02 NG/ML (< 0.10)
== END 2017-06-12 22:41 | disposition home or self-care (01) ==
LOC: M ED 18:35
DX: R07.89 Other chest pain (principal); R06.02 Shortness of breath; R05 Cough; E11.9 Type 2 diabetes mellitus without complications; I10 Essential (primary) hypertension; I25.10 Atherosclerotic heart disease of native coronary artery without angina pectoris; Z79.899 Other long term (current) drug therapy; Z79.82 Long term (current) use of aspirin; Z91.030 Bee allergy status; F17.210 Nicotine dependence, cigarettes, uncomplicated
CPT/HCPCS: Q9967

== ENCOUNTER → 2019-05-28 | Outpatient (CLI) | payer MEDICARE ==
[~2019-05-28] MED LIST changes: +ASPI-1 PO; +ASPI-255 PO; -ASPI325T PO; -ASPI325T24 PO; +CHLO125TA; -NICO21DI5 TD; +NICO21DI6 TD
--- NOTE | 2019-05-28 10:40 | REP ---
Bilateral lower extremity arterial Doppler ultrasound: History: Peripheral vascular disease. Findings: Ankle brachial indices are normal at 0.9 bilaterally. Some plaquing is observed bilaterally. Normal triphasic waveforms are noted throughout the lower extremities bilaterally. No high-grade stenosis is appreciated. Right lower extremity arterial Doppler velocity chart: CF A 112 cm/S Profunda 109 Proximal SFA 93 Mid SFA 93 Distal SFA 74 Popliteal 56 Proximal AT A 39 Tibioperoneal trunk 50 Proximal NUMERICAL CONTROL NESTING OPERATOR 41 Distal NUMERICAL CONTROL NESTING OPERATOR 50 Distal AT A 57 Left lower extremity arterial Doppler velocity chart: Left CF A 89 cm/S Profunda 75 Proximal SFA 96 Mid SFA 92 Distal SFA 96 Popliteal 79 Proximal AT A 34 Tibioperoneal trunk 59 Proximal NUMERICAL CONTROL NESTING OPERATOR 45 Distal NUMERICAL CONTROL NESTING OPERATOR 51 Distal AT A 46 Electronically Signed by Mik Bacon MD 05/28/2019 10:31 A
== END ==
LOC: M RAD 08:41
PROVIDERS: ATTEND Family Medicine
DX: I73.9 Peripheral vascular disease, unspecified (principal)

== ENCOUNTER → 2021-03-01 | Outpatient (CLI) | payer MEDICARE, OTHER ==
--- NOTE | 2021-03-05 16:30 | SLEEPCENT ---
DATE: 03/01/2021 PROCEDURE: Nocturnal polysomnography. ORDERED BY: Reema Soares. Nocturnal polysomnography was performed for evaluation of sleep physiology in this patient with a history of excessive somnolence. 6 hours and 22 minutes of data were reviewed. There were 261 minutes of sleep identified. Sleep latency was prolonged at 38 minutes. REM latency was quite prolonged at 270 minutes. Sleep architecture showed fragmentation and poor progression with periods of wake. There was 1 REM cycle late in the study. Overall sleep efficiency was 69%. The electrocardiogram showed a sinus rhythm with an average heart rate of 46 beats per minute, rate ranged 40 to 70. EEG showed normal waveforms for wake and sleep. There were 196 respiratory events identified of 10 seconds in duration or greater for an apnea-hypopnea index of 45. The events were obstructive, not exclusive to sleep stage nor position. Arousals from respiratory events occurred 18.2 times per hour, and oxygen desaturations were seen into the 80s. Remaining measures of sleep physiology were reasonably normal. There was some snoring and mild limb activity, but arousals from limb events were few. IMPRESSION: Obstructive sleep apnea syndrome (G47.33). Apnea-hypopnea index 45.1. RECOMMENDATION: The patient should be encouraged to return to [facility]. In the interim, alcohol and sedative avoidance should be practiced, and caution exercised during the operation of motor vehicles. cc: CLOVIS PARNELL MD
== END ==
LOC: M SLEEP 20:00
PROVIDERS: ATTEND Nurse Practitioner Family
DX: G47.33 Obstructive sleep apnea (adult) (pediatric) (principal); R06.83 Snoring; R40.0 Somnolence

== ENCOUNTER → 2021-04-05 | Outpatient (CLI) | payer OTHER ==
--- NOTE | 2021-04-09 20:23 | SLEEPCENT ---
NOCTURNAL POLYSOMNOGRAPHY DATE: 04/05/2021 ORDERED BY: FENG Fraser Nocturnal polysomnography was performed for the titration of pressure therapy in this patient with obstructive sleep apnea syndrome with apnea-hypopnea index of 45.1. For testing, the patient was fit with a ResMed F20 full face mask of medium size was used, 4 cm of water pressure were applied to the circuit, and the lights were extinguished. 8 hours and 2 minutes of data were reviewed. There were 362 minutes of sleep identified. Sleep latency was normal at 10.5 minutes. REM sleep was mildly delayed at 119 minutes. Sleep architecture did improve with optimal pressure therapy. There were two REM cycles noted. Overall sleep efficiency was 76.7%. The electrocardiogram showed a sinus rhythm with a rate of 50 beats per minute on average. Rate range was 40-60. EEG showed normal waveforms for wake and sleep. Respiratory events were fully palliated with CPAP at a pressure of 13. There was some persistent limb activity though this did improve over the course of the study. The limb movement arousal index on this occasion was 6.3. IMPRESSION: Obstructive sleep apnea syndrome (G47.33). RECOMMENDATION: Nightly use of pressure therapy 13 cm of water.
== END ==
LOC: M SLEEP 20:00
PROVIDERS: ATTEND Nurse Practitioner Family
DX: G47.33 Obstructive sleep apnea (adult) (pediatric) (principal)

== ENCOUNTER → 2022-01-22 | Outpatient (REF) | payer OTHER ==
[~2022-01-22] MED LIST changes: -CEFD1CAP8 PO; +CEFD300C41 PO; +ECOT81TA5 PO; +EZET10TA21; +FINA5TAB2; +FOLTTAB9 PO; +HUMI40IN2; +LEVO1TAB39; +TAMS1CAP17; +VITA-243 PO; +VITMTA PO
== END ==
LOC: M LAB REF 14:17
PROVIDERS: ATTEND Internal Medicine Hematology & Oncology
DX: E83.19 Other disorders of iron metabolism (principal)

== ENCOUNTER → 2022-02-05 | Outpatient (CLI) | payer OTHER ==
[~2022-02-05] MED LIST changes: -ECOT81TA5 PO; -EZET10TA21; -FINA5TAB2; -FOLTTAB9 PO; -HUMI40IN2; -LEVO1TAB39; -TAMS1CAP17; -VITA-243 PO; -VITMTA PO
== END ==
LOC: M RAD 07:48
PROVIDERS: ATTEND Family Medicine
DX: Z12.2 Encounter for screening for malignant neoplasm of respiratory organs (principal); F17.210 Nicotine dependence, cigarettes, uncomplicated; R91.8 Other nonspecific abnormal finding of lung field

== ENCOUNTER → 2022-04-27 | Outpatient (CLI) | payer OTHER ==
[~2022-04-27] MED LIST changes: +ECOT81TA5 PO; +EZET10TA21; +FINA5TAB2; +FOLTTAB9 PO; +HUMI40IN2; +LEVO1TAB39; +TAMS1CAP17; +VITA-243 PO; +VITMTA PO
== END ==
LOC: M RAD 10:31
PROVIDERS: ATTEND Internal Medicine Hematology & Oncology
DX: E83.19 Other disorders of iron metabolism (principal); R91.8 Other nonspecific abnormal finding of lung field; R16.0 Hepatomegaly, not elsewhere classified; D35.00 Benign neoplasm of unspecified adrenal gland

== ENCOUNTER 2022-05-30 23:30 | Emergency (ER) | payer OTHER ==
[~2022-05-30] VITALS: Ht 182.9 cm; Wt 119.1 kg
[2022-05-31 00:39] LABS: BASO # 0.1 10^3/uL (0.0-0.2); BASO % 0.7 % (0.0-1.0); EOS # 0.2 10^3/uL (0.0-0.5); EOS % 1.7 % (0.0-3.0); HEMATOCRIT 43.3 % (42.0-52.0); HEMOGLOBIN 14.4 g/dl (13.5-17.5); LYMPH # 2.6 10^3/uL (1.5-5.0); LYMPH % 29.7 % (24.0-44.0); MEAN CORPUSCULAR HEMOGLOBIN 29.2 pg (27.0-33.0); MEAN CORPUSCULAR HGB CONC 33.3 g/dl (32.0-36.5); MEAN CORPUSCULAR VOLUME 87.8 fl (80.0-96.0); MONO % 11.3 % (2.0-8.0); NEUTROPHILS # 4.9 10^3/uL (1.5-8.5); NEUTROPHILS % 56.4 % (36.0-66.0); PLATELET COUNT, AUTOMATED 289 10^3/uL (150-450); RED BLOOD COUNT 4.93 10^6/uL (4.30-6.10); WHITE BLOOD COUNT 8.7 10^3/uL (4.0-10.0)
[2022-05-31 01:05] LABS: CK-MB VALUE MASS < 1.0 NG/ML (<3.6); LIPASE 28 U/L (12-53)
[2022-05-31 01:06] LABS: BILIRUBIN,DIRECT 0.2 MG/DL (<0.4)
[2022-05-31 01:07] LABS: ALBUMIN 3.6 G/DL (3.2-5.2); ALKALINE PHOSPHATASE 68 U/L (46-116); ALT/SGPT 17 U/L (7.0-40); AST/SGOT 19 U/L (<34); BILIRUBIN,TOTAL 0.5 MG/DL (0.3-1.2); BLOOD UREA NITROGEN 9 MG/DL (9-23); CALCIUM LEVEL 8.8 MG/DL (8.3-10.6); CARBON DIOXIDE LEVEL 23 MMOL/L (20-31); CHLORIDE LEVEL 107 MMOL/L (98-107); CPK CREATINE PHOSPHOKINASE 68 U/L (46-171); CREATININE FOR GFR 0.71 MG/DL (0.70-1.30); GLOMERULAR FILTRATION RATE > 60.0 (>49); GLUCOSE, FASTING 90 MG/DL (74-106); MB/CK RELATIVE INDEX 1.47 (< OR =4); POTASSIUM SERUM 3.7 MMOL/L (3.5-5.1); SODIUM LEVEL 141 MMOL/L (136-145); TOTAL PROTEIN 6.3 G/DL (5.7-8.2)
[2022-05-31 01:08] LABS: THYROID STIMULATING HORMONE 1.083 uIU/ML (0.55-4.78)
[2022-05-31 02:45] LABS: CPK CREATINE PHOSPHOKINASE 71 U/L (46-171)
[2022-05-31 03:07] LABS: CK-MB VALUE MASS < 1.0 NG/ML (<3.6)
[2022-05-31] MEDS ORDERED: ISOVUE-370 76% 100ML VIAL As Ordered ONE (06:51)
[2022-05-31] MEDS ORDERED: CEFD300C41 PO (09:38)
[2022-05-31 09:57] VITALS: BP 116/68
== END 2022-05-31 10:00 | disposition home or self-care (01) ==
LOC: M ED 23:30
DX: R30.0 Dysuria (principal); R07.9 Chest pain, unspecified; I25.2 Old myocardial infarction; I10 Essential (primary) hypertension; E78.5 Hyperlipidemia, unspecified; F32.9 Major depressive disorder, single episode, unspecified; M54.50 Low back pain, unspecified; Z95.1 Presence of aortocoronary bypass graft; Z98.61 Coronary angioplasty status; F17.200 Nicotine dependence, unspecified, uncomplicated; Z79.82 Long term (current) use of aspirin; Z79.899 Other long term (current) drug therapy; Z91.030 Bee allergy status
CPT/HCPCS: 71046; 71275; 80048; 80076; 81000; 81015; 82550; 82553; 83690; 83880; 84443; 84484; 85025; 87086; 93005; 99284; Q9967

== ENCOUNTER → 2022-10-25 | Outpatient (CLI) | payer OTHER ==
[~2022-10-25] MED LIST changes: +ISOVUE-300 61% 100ML VIAL As Ordered ONE; +LIDOCAINE 1% MDV 20ML VIAL As Ordered ONE; +methylPREDNISolone SUSP 40MG/ML 1ML VIAL (DEPO MEDROL) As Ordered ONE
== END ==
LOC: M RAD 13:03
PROVIDERS: ATTEND Physician Assistant
DX: M16.12 Unilateral primary osteoarthritis, left hip (principal)
CPT/HCPCS: 20610; 77002; J1030; Q9967

== ENCOUNTER 2023-01-20 20:36 | Emergency (ER) | payer OTHER ==
[~2023-01-20] VITALS: Ht 180.3 cm; Wt 87.6 kg
[~2023-01-20 20:36] MED LIST changes: -ISOVUE-300 61% 100ML VIAL As Ordered ONE; -LIDOCAINE 1% MDV 20ML VIAL As Ordered ONE; -methylPREDNISolone SUSP 40MG/ML 1ML VIAL (DEPO MEDROL) As Ordered ONE
[2023-01-20 20:38] VITALS: TEMP 98; O2SAT 99
[2023-01-20 21:20] LABS: BASO % 0.8 % (0.0-1.0); EOS % 0.8 % (0.0-3.0); HEMOGLOBIN 15.4 g/dl (13.5-17.5); LYMPH # 1.7 10^3/uL (1.5-5.0); LYMPH % 41.8 % (24.0-44.0); MEAN CORPUSCULAR HEMOGLOBIN 30.3 pg (27.0-33.0); MEAN CORPUSCULAR HGB CONC 33.5 g/dl (32.0-36.5); MEAN CORPUSCULAR VOLUME 90.4 fl (80.0-96.0); MONO # 0.7 10^3/uL (0.0-0.8); MONO % 17.7 % (2.0-8.0); NEUTROPHILS # 1.5 10^3/uL (1.5-8.5); NEUTROPHILS % 38.6 % (36.0-66.0); PLATELET COUNT, AUTOMATED 192 10^3/uL (150-450); RED BLOOD COUNT 5.09 10^6/uL (4.30-6.10)
[2023-01-20 21:39] LABS: CK-MB VALUE MASS 1.8 NG/ML (<3.6); LIPASE 42 U/L (12-53)
[2023-01-20 21:41] LABS: ALBUMIN 3.7 G/DL (3.2-5.2); ALKALINE PHOSPHATASE 56 U/L (46-116); ALT/SGPT 21 U/L (7.0-40); AST/SGOT 24 U/L (<34); BILIRUBIN,DIRECT 0.1 MG/DL (<0.4); BILIRUBIN,TOTAL 0.3 MG/DL (0.3-1.2); BLOOD UREA NITROGEN 14 MG/DL (9-23); CALCIUM LEVEL 8.5 MG/DL (8.3-10.6); CARBON DIOXIDE LEVEL 29 MMOL/L (20-31); CHLORIDE LEVEL 105 MMOL/L (98-107); CREATININE FOR GFR 0.86 MG/DL (0.70-1.30); GLOMERULAR FILTRATION RATE > 60.0 (>49); GLUCOSE, FASTING 83 MG/DL (74-106); POTASSIUM SERUM 4.4 MMOL/L (3.5-5.1); SODIUM LEVEL 140 MMOL/L (136-145); TOTAL PROTEIN 6.4 G/DL (5.7-8.2)
[2023-01-20 21:42] LABS: RSV AMPLIFICATION NEGATIVE (NEGATIVE)
[2023-01-20 22:02] LABS: CPK CREATINE PHOSPHOKINASE 82 U/L (46-171); MB/CK RELATIVE INDEX 2.19 (< OR =4)
[2023-01-20 22:33] VITALS: BP 130/79
[2023-01-20] MEDS ORDERED: NS 1,000 ML IV ONE (22:45)
[2023-01-20 23:13] LABS: CK-MB VALUE MASS < 1.0 NG/ML (<3.6)
[2023-01-20 23:20] LABS: CPK CREATINE PHOSPHOKINASE 78 U/L (46-171); MB/CK RELATIVE INDEX 1.28 (< OR =4)
[2023-01-20] MEDS ORDERED: ISOVUE-370 76% 100ML VIAL As Ordered ONE (23:38)
[2023-01-21] MEDS: COMBIVENT RESPIMAT 100-20MCG INHALER 4GM INH SCH ×3 (00:21→02:13)
[2023-01-21] MEDS ORDERED: VENTAER INH (01:24)
== END 2023-01-21 03:42 | disposition home or self-care (01) ==
LOC: M ED 20:36
DX: U07.1 COVID-19 (principal); I11.9 Hypertensive heart disease without heart failure; I25.10 Atherosclerotic heart disease of native coronary artery without angina pectoris; I25.2 Old myocardial infarction; E78.5 Hyperlipidemia, unspecified; Z95.5 Presence of coronary angioplasty implant and graft; F17.210 Nicotine dependence, cigarettes, uncomplicated; Z91.030 Bee allergy status; Z79.899 Other long term (current) drug therapy; Z79.82 Long term (current) use of aspirin
CPT/HCPCS: 36415; 71046; 71275; 80048; 80076; 82550; 82553; 83605; 83690; 84484; 85025; 87040; 87631; 93005; 94640; 99284; Q9967

== ENCOUNTER → 2023-03-31 | Outpatient (CLI) | payer OTHER ==
[~2023-03-31] MED LIST changes: -CEFD300C41 PO; +CEFD300C42 PO; +VENTAER INH
== END ==
LOC: M RAD 10:30
PROVIDERS: ATTEND Nurse Practitioner Family
DX: I65.23 Occlusion and stenosis of bilateral carotid arteries (principal)

== ENCOUNTER → 2023-05-15 | Outpatient (CLI) | payer OTHER ==
[~2023-05-15] MED LIST changes: +CEFD1CAP9 PO; -CEFD300C42 PO; +PROHANCE 279.3MG/ML 15ML VIAL ONE
== END ==
LOC: M PLAIMG 13:27
PROVIDERS: ATTEND Family Medicine
DX: D35.02 Benign neoplasm of left adrenal gland (principal); K80.20 Calculus of gallbladder without cholecystitis without obstruction
CPT/HCPCS: 74183; A9576

== ENCOUNTER → 2023-08-22 | Outpatient (CLI) | payer OTHER ==
[~2023-08-22] MED LIST changes: -PROHANCE 279.3MG/ML 15ML VIAL ONE
[2023-08-22 12:51] LABS: HEMOGLOBIN A1c 4.9 % (4.0-6.0)
== END ==
LOC: M PLALAB 09:46
PROVIDERS: ATTEND Orthopaedic Surgery
DX: M19.011 Primary osteoarthritis, right shoulder (principal); Z79.899 Other long term (current) drug therapy

== ENCOUNTER → 2023-09-16 | Outpatient (CLI) | payer OTHER | LOC: M SLEEP 20:00 | PROVIDERS: ATTEND Nurse Practitioner Family | DX: G47.33 Obstructive sleep apnea (adult) (pediatric) (principal) ==

== ENCOUNTER → 2024-02-19 | Outpatient (CLI) | payer OTHER ==
[~2024-02-19] MED LIST changes: -EZET10TA21; +EZET10TA21 PO; +FINA5TAB2 PO; +GABA-1171 PO; +MULTTAB61 PO; +SULF500T41 PO; -TAMS1CAP17; +TAMS1CAP17 PO
== END ==
LOC: M SLEEP 20:00
PROVIDERS: ATTEND Nurse Practitioner Family
DX: G47.33 Obstructive sleep apnea (adult) (pediatric) (principal)

== ENCOUNTER → 2024-04-09 | Outpatient (CLI) | payer OTHER | LOC: M RAD 15:19 | PROVIDERS: ATTEND Family Medicine | DX: Z12.2 Encounter for screening for malignant neoplasm of respiratory organs (principal); F17.210 Nicotine dependence, cigarettes, uncomplicated ==

== ENCOUNTER → 2024-09-20 | Outpatient (CLI) | payer MEDICARE ==
[2024-09-20 14:53] LABS: PLATELET COUNT, AUTOMATED 215 10^3/uL (150-450)
[2024-09-20 15:13] LABS: PARTIAL THROMBOPLASTIN TIME 35.5 SECONDS (24.8-34.2); PROTHROMBIN TIME 13.5 SECONDS (12.5-14.5)
[2024-09-20 16:43] LABS: COLLAGEN EPINEPHRINE 147 SECONDS (74-162)
== END ==
LOC: M PLALAB 12:50
PROVIDERS: ATTEND Orthopaedic Surgery
DX: Z01.818 Encounter for other preprocedural examination (principal); Z79.01 Long term (current) use of anticoagulants

== ENCOUNTER → 2025-04-21 | Outpatient (CLI) | payer MEDICARE ==
[~2025-04-21] MED LIST changes: +ALBU8.5H INH; -EZET10TA21 PO; +EZET10TA57 PO; +PRED20TA PO; +TRAZ-252
== END ==
LOC: M RAD 13:50
PROVIDERS: ATTEND Family Medicine
DX: Z12.2 Encounter for screening for malignant neoplasm of respiratory organs (principal); F17.210 Nicotine dependence, cigarettes, uncomplicated

== ENCOUNTER 2025-04-25 12:39 | Emergency (ER) | payer MEDICARE ==
[~2025-04-25] VITALS: Ht 180.3 cm; Wt 79.0 kg
[~2025-04-25 12:39] MED LIST changes: -ALBU8.5H INH; -PRED20TA PO
[2025-04-25 13:26] LABS: BASO # 0.1 10^3/uL (0.0-0.2); BASO % 1.0 % (0.0-1.0); EOS # 0.2 10^3/uL (0.0-0.5); EOS % 2.3 % (0.0-3.0); LYMPH # 1.7 10^3/uL (1.5-5.0); LYMPH % 20.5 % (24.0-44.0); MONO # 1.0 10^3/uL (0.0-0.8); MONO % 11.8 % (2.0-8.0); NEUTROPHILS # 5.2 10^3/uL (1.5-8.5); NEUTROPHILS % 64.0 % (36.0-66.0); PLATELET COUNT, AUTOMATED 242 10^3/uL (150-450)
[2025-04-25 13:47] LABS: CPK CREATINE PHOSPHOKINASE 123 U/L (46-171); INR 0.93
[2025-04-25 13:48] LABS: ALT/SGPT 18 U/L (7.0-40); AST/SGOT 23 U/L (<34); CALCIUM LEVEL 9.2 MG/DL (8.3-10.6); CARBON DIOXIDE LEVEL 30 MMOL/L (20-31); CHLORIDE LEVEL 105 MMOL/L (98-107); CK-MB VALUE MASS 2.1 NG/ML (<3.6); CREATININE FOR GFR 0.82 MG/DL (0.70-1.30); GLOMERULAR FILTRATION RATE > 90.0 (>42); MB/CK RELATIVE INDEX 1.70 (< OR =4); POTASSIUM SERUM 4.8 MMOL/L (3.5-5.1); SODIUM LEVEL 141 MMOL/L (136-145)
[2025-04-25 13:50] LABS: FREE T4 1.19 NG/DL (0.89-1.76)
[2025-04-25 14:43] LABS: CK-MB VALUE MASS 1.3 NG/ML (<3.6)
[2025-04-25 14:44] LABS: CPK CREATINE PHOSPHOKINASE 106.0 U/L (46-171); MB/CK RELATIVE INDEX 1.22 (< OR =4)
[2025-04-25] MEDS ORDERED: ISOVUE-370 76% 100 ML VIAL As Ordered ONE (16:12)
[2025-04-25] MEDS: IPRATROPIUM 0.5 MG/ALBUTEROL 2.5 MG INH SOL UD 3 ML NEB ONE (16:43)
[2025-04-25] MEDS: ALBUTEROL SULFATE 2.5 MG/0.5 ML INH CONCENTRATE NEB SOLN INH ONE (16:44)
[2025-04-25 18:20] LABS: KETONE, URINE AUTO RFX NEGATIVE (NEGATIVE); LEUKOCYTE ESTERASE UR AUTO RFX NEGATIVE (NEGATIVE); NITRITE, URINE AUTO RFX NEGATIVE (NEGATIVE); RBC, URINE AUTO RFX 3 /HPF (0-3); SQUAM EPITHELIAL CELL UR AURFX 0 /HPF (0-6); WBC, URINE AUTO RFX 0 /HPF (0-3)
[2025-04-25] MEDS ORDERED: PRED20TA PO (19:42)
[2025-04-25] MEDS ORDERED: ALBU8.5H INH (19:42)
[2025-04-25] MEDS: predniSONE 20 MG TAB PO ONE (20:20)
[2025-04-25 20:30] VITALS: BP 142/71; TEMP 97.4; O2SAT 98
== END 2025-04-25 20:45 | disposition home or self-care (01) ==
LOC: M ED 12:39
DX: R07.89 Other chest pain (principal); D30.3 Benign neoplasm of bladder; I25.2 Old myocardial infarction; I10 Essential (primary) hypertension; E78.5 Hyperlipidemia, unspecified; F17.210 Nicotine dependence, cigarettes, uncomplicated; Z91.030 Bee allergy status; Z79.51 Long term (current) use of inhaled steroids; Z79.1 Long term (current) use of non-steroidal anti-inflammatories (NSAID); Z79.899 Other long term (current) drug therapy; Z79.52 Long term (current) use of systemic steroids; Z79.810 Long term (current) use of selective estrogen receptor modulators (SERMs)
CPT/HCPCS: 36415; 70450; 71045; 71275; 74177; 80047; 80048; 80076; 81001; 82550; 82553; 83690; 84145; 84439; 84443; 84484; 85025; 85610; 85730; 87040; 87486; 87581; 87633; 87798; 93005; 93041; 94640; 94760; 99285; J7512; Q9967

== ENCOUNTER → 2025-05-19 | Outpatient (REF) | payer MEDICARE ==
[~2025-05-19] MED LIST changes: +ALBU8.5H INH; +PRED20TA PO
[2025-05-19 15:44] LABS: APPEARANCE, URINE CLEAR (CLEAR); BACTERIA, URINE AUTO NEGATIVE (NEGATIVE); BILIRUBIN, URINE AUTO NEGATIVE (NEGATIVE); BLOOD, URINE BLOOD NEGATIVE (NEGATIVE); CALCIUM OXALATE CRYSTALS SMALL; GLUCOSE, URINE (UA) AUTO NEGATIVE (NEGATIVE); KETONE, URINE AUTO NEGATIVE (NEGATIVE); LEUKOCYTE ESTERASE, URINE AUTO NEGATIVE (NEGATIVE); MUCUS, URINE SMALL (NEGATIVE); NITRITE, URINE AUTO NEGATIVE (NEGATIVE); PROTEIN, URINE AUTO NEGATIVE (NEGATIVE); RBC, URINE AUTO 1 /HPF (0-3); SPECIFIC GRAVITY URINE AUTO 1.018 (1.002-1.035); SQUAMOUS EPITHELIAL CELL UR AU 0 /HPF (0-6); UROBILINOGEN, URINE AUTO 0.2 mg/dL (0.0-2.0); WBC, URINE AUTO 2 /HPF (0-3)
== END ==
LOC: M SMT 15:05
PROVIDERS: ATTEND Urology
DX: N32.89 Other specified disorders of bladder (principal)